=== PATIENT | female | born 1935 | race Caucasian/White ===

== ENCOUNTER → 2017-07-18 11:22 | Outpatient (CLI) | payer MEDICARE, OTHER, SELFPAY ==
--- NOTE | 2017-07-18 11:24 | HPBD_ITS ---
STUDY: DUAL ENERGY X-RAY ABSORPTIOMETRY / DXA REASON FOR EXAM: Female, 81 years old. Early menopause. Loss of height of 3.5 inches. TECHNIQUE: Bone Mineral Density (BMD) measurements of lumbar spine and bilateral hips were obtained. COMPARISON: Comparison is made with prior study dated December 16, 2008. FINDINGS: Lumbar Spine (L1-L4): g/cm2 (1.018) / T-score (-1.3) / Z-score (0.6) Findings are suggestive of osteopenia with a moderate fracture risk. Left Femur Total: g/cm2 (0.779) / T-score (-1.8) / Z-score (0.3) Left Femoral Neck: g/cm2 (0.718) / T-score (-2.3) / Z-score (0.0) Right Femur Total: g/cm2 (0.761) / T-score (-2.0) / Z-score (0.3) The T-Scores on the most recent prior examination were: Lumbar Spine (L1-L4): There has been worsening of bone density since the previous examination. Left Femur Total: which represents a worsening of 8.9%. Right Femur Total: which represents a worsening of 6.2%. HPBD/Dexa Bone Density Study (HP) IMPRESSION: The patient is considered osteopenic as outlined below according to World Tera Organization (WHO) criteria with a moderate fracture risk. There has been worsening of bone density since the previous examination. Reference Information: The T-score is the number of standard deviations above or below the standard which is normal for young adults at their peak bone mineral density. The World Health Organization (WHO) interprets the T-scores as follows: Above -1 Normal bone density Between -1 and -2.5 Osteopenia Equal to / or below -2.5 Osteoporosis As a practical clinical guideline, osteopenia may be graded as follows: Mild -1 through -1.5 Moderate -1.6 through -2.0 Severe -2.1 through -2.4 The Z-score is the number of standard deviations above or below age-matched controls. A Z-score of less than -1.5 would be considered abnormal. References: 1. NIH Osteoporosis and Related Bone Diseases http://www.osteo.org 2. International Society for Clinical Densitometry http://www.iscd.org 3. National Osteoporosis Foundation http://www.nof.org Electronically Signed: Vito Duncan MD at 12:35 EST Tel [phone], Service support ,
--- NOTE | 2017-07-18 11:24 | HPBI_ITS ---
MAMMOGRAPHY - BILATERAL SCREENING REASON FOR EXAM: Female, 81 years old. Routine annual screening examination. PERTINENT HISTORY: Non-contributory. TECHNIQUE: Digital bilateral breast leon (3D mammographic acquisition) in the CC and MLO projections. 2-D mediolateral oblique (MLO) and craniocaudad (CC) views of both breasts were obtained. CAD: Full Field Digital Mammography with Computer Added Detection was performed. COMPARISON: Comparison is made with prior study dated July 07, 2016 and January 03, 2016. FINDINGS: Breast Composition: The breasts are heterogeneously dense, which may obscure small masses. There are no dominant masses or suspicious calcifications. Stable vascular calcifications/secretory calcifications in the left breast. No other significant abnormalities are identified. There has been no significant change since the prior study. HPBI/SCREENING MAMM (CAD), BILAT IMPRESSION: Stable bilateral screening mammogram. Yearly follow-up mammogram recommended. (A) ASSESSMENT CATEGORY: BIRADS Category 2: Benign. A letter regarding these results will be sent to the patient by the facility within 30 days. Approximately 10% of breast cancers are not detected by mammography. A normal mammogram should not delay biopsy of a clinically suspicious abnormality. [id number] Electronically Signed: Vito Duncan MD at 13:25 EST Tel [phone], Service support ,
== END ==
PROVIDERS: Family Provider Family Medicine; PCP Family Medicine; Visit Provider Family Medicine
DX: Z12.31 Encounter for screening mammogram for malignant neoplasm of breast (principal); Z13.820 Encounter for screening for osteoporosis; Z78.0 Asymptomatic menopausal state
CPT/HCPCS: 77063; 77067; 77080

== ENCOUNTER 2017-07-31 05:23 | Inpatient (IN) | payer MEDICARE, OTHER, SELFPAY ==
[2017-07-13 13:12] VITALS: BP 127/89; PULSE 64; RESP 17; TEMP 36.8; O2SAT 97; BMI 26.3
--- NOTE | 2017-07-13 13:35 | SDCEKG_ITS ---
Test Reason : Blood Pressure : / mmHG Vent. Rate : 055 BPM Atrial Rate : 055 BPM P-R Int : 162 ms QRS Dur : 082 ms QT Int : 432 ms P-R-T Axes : 077 058 051 degrees QTc Int : 413 ms Sinus bradycardia Low voltage QRS Nonspecific T wave abnormality Abnormal ECG Confirmed by MOJGAN HINKLE, CORIN ([id number]), photo editor CARLO ROLON ([id number]) on 07/17/2017 8:29:07 AM Referred By: TERESA CUI Confirmed By:CORIN ULRICH MD
[2017-07-31] VITALS (13 sets, daily range): BP systolic 112–168; BP diastolic 53–72; PULSE 42–64; RESP 16–18; TEMP 36.1–37.5; O2SAT 95–99; BMI 27.3
[2017-07-31] MEDS: Acetaminophen 500 MG Tablet 1000 MG PO ×3 (05:59→22:03)
[2017-07-31] MEDS: oxyCODONE HCl Cr 10 MG Tablet PO (06:00)
[2017-07-31] MEDS: Celecoxib 200 MG Capsule 400 MG PO (06:00)
[2017-07-31] MEDS: Cefazolin 2 GM in 0.9% Normal Saline 100 ML IV (07:18)
--- NOTE | 2017-07-31 08:10 | RAD_ITS ---
STUDY: X-RAY - PELVIS AND RIGHT HIP REASON FOR EXAM: Female, 81 years old. Total hip replacement. TECHNIQUE: Radiological exam, hip, unilateral, with pelvis when performed; 1 view COMPARISON: Comparison is made with prior study dated April 29, 2015. FINDINGS: The patient is status post right total hip replacement. There is good alignment. Postoperative soft tissue changes. RAD/Hip Min 2 Views (Portable) IMPRESSION: Status post right total hip replacement. There is good alignment. Postoperative soft tissue changes. Electronically Signed: Vito Duncan MD at 10:10 EST Tel [phone], Service support ,
[2017-07-31] MEDS: Lactated Ringers 1,000 ML 125 ML IV ×2 (11:20→16:46)
[2017-07-31] MEDS: oxyCODONE 5 MG Tablet PO ×2 (11:40→15:49)
[2017-07-31] MEDS: Calcium Carb/Vitamin D 1 TABLET Tablet PO (12:08)
[2017-07-31] MEDS: Famotidine 20 MG Tablet PO (12:08)
[2017-07-31] MEDS: Senna/Docusate Sodium 1 Tablet 2 TABLET PO ×2 (12:08→22:03)
[2017-07-31] MEDS: Multivitamins,Therapeutic Tablet 1 TABLET PO (12:08)
[2017-07-31] MEDS: Rivaroxaban 20 MG Tablet PO (12:09)
--- NOTE | 2017-07-31 12:53 | NURSING ---
Pt. c/o nausea and vomiting noted.
[2017-07-31] MEDS: Ondansetron 4 MG/2 ML Vial IV ×2 (12:55→23:01)
[2017-07-31] MEDS: Cefazolin 1 GM/50 ML BAG IV ×2 (16:47→22:02)
[2017-07-31] MEDS: 0.9% NaCl Peripheral Flush Adult/Peds IV ×2 (21:01→23:01)
--- NOTE | 2017-07-31 23:27 | NURSING ---
No bleeding noted to rt hip dressing since dressing was changed around 1929. Pt assisted up to BSC x2 assist to void. Upon returning to bed, there was a quarter size spot of serosang. drainage on rt hip dressing. Pt turned onto rt side with polar care pack placed on site. Will continue to monitor. Medicated with Zofran for nausea and 50ml emesis.
[2017-08-01] MEDS: oxyCODONE 5 MG Tablet PO (01:31)
[2017-08-01] MEDS: Lactated Ringers 1,000 ML 125 ML IV (01:32)
[2017-08-01 01:42] VITALS: BP 112/62; PULSE 66; RESP 16; TEMP 36.6; O2SAT 96
[2017-08-01 06:27] LABS: Hematocrit 28.4 % (37-47); Hemoglobin 9.3 g/dl (12.0-15.0); Mean Corp Hgb Conc 32.7 g/gl (32-36); Mean Corpuscular Hgb 29.2 pg (27.0-32.0); Mean Corpuscular Volume 89.3 fL (81-99); Mean Platelet Vol. 11.8 fl (6.2-12.0); Platelet Count 135 K/mm3 (150-450); RBC Distribution Width CV 13.1 % (11.6-14.6); RBC Distribution Width SD 42.8 fl (35.1-43.9); Red Blood Count 3.18 M/mm3 (4.2-5.4); White Blood Count 6.1 K/mm3 (4.4-11.0)
[2017-08-01] MEDS: Acetaminophen 500 MG Tablet 1000 MG PO ×3 (06:31→21:14)
[2017-08-01 06:51] LABS: Anion Gap 7 (5-15); BUN 16 mg/dL (7-18); BUN/Creat Ratio 22.6 RATIO (10-20); Calcium,Total 8.4 mg/dL (8.5-10.1); Chloride 101 mmol/L (98-107); Creatinine, Serum 0.71 mg/dL (0.55-1.02); EST Glomerular Filtration Rate 84 mL/min (>60); Est Glom Filt Rate - Afr Amer 101 mL/min (>60); Estimated Creatinine Clearance 32.73 ml/min; Glucose 112 mg/dL (74-106); Potassium 4.2 mmol/L (3.5-5.1); Sodium Level 134 mmol/L (136-145)
[2017-08-01 06:53] LABS: Scan Indicated on CBC? Y/N NO
--- NOTE | 2017-08-01 07:42 | PCM.PN.ORT ---
Subjective: Patient is resting comfortably in chair at bedside during exam. No adverse events overnight. However her dressing has had to be changed 3 or 4 times. The current dressing has stayed dry throughout the night. She has been laying on the operative right extremity for pressure. Currently denies chest pain, shortness of breath, dizziness, calf pain. The pain medicines seem to be helping. She is nervous for a discharge to home today. She would like to see how the day goes. Objective: Patient is alert and oriented ?3. No acute distress at rest. Breathing easily without respiratory distress. Inspection of right hip reveals a dressing that is with a couple small drops of dried bloody drainage. Negative Nehal bilaterally. Without signs of DVT. Sensation intact light touch bilateral lower extremities. Patient able to actively plantar and dorsiflex bilateral feet against resistance. Pedal pulses present +2 bilaterally. Neurovascularly intact. - Physical Exam Vital Signs Temp Pulse Resp BP Pulse Ox 97.9 F 66 16 112/62 96 08/01/17 01:42 08/01/17 01:42 08/01/17 01:42 08/01/17 01:42 08/01/17 01:42 Oxygen Delivery Method Room Air Weight: 66.68 kg Body Mass Index (BMI) 27.3 Intake and Output for Last 24 Hours 07/30/17 07/31/17 08/01/17 23:59 23:59 23:59 Intake Total 6057 / 6057 4329 / 4329 Output Total 100 / 100 825 / 825 Balance 5957 / 5957 3504 / 3504 Laboratory Tests Past 24 Hrs 08/01/17 08/01/17 05:48 05:48 WBC 6.1 RBC 3.18 L Hgb 9.3 L Hct 28.4 L MCV 89.3 MCH 29.2 MCHC 32.7 RDW 13.1 RDW Differential 42.8 Plt Count 135 L MPV 11.8 Sodium 134 L Potassium 4.2 Chloride 101 Carbon Dioxide 26.0 Anion Gap 7 BUN 16 Creatinine 0.71 Estim Creat Clear Calc 32.73 Est GFR (MDRD) Af Amer 101 Est GFR (MDRD) Non-Af 84 BUN/Creatinine Ratio 22.6 H Glucose 112 H Calcium 8.4 L Assessment/Plan 1. Status post right RAQUEL; postop day #1 2. Continue OxyIR and Tylenol for pain control 3. DVT prophylaxis; bilateral teds, SCDs and resume preoperative Xarelto therapy 4. Begin PT/OT; weightbearing as tolerated right lower extremity with a walker and hip dislocation precautions 5. Drop in hemoglobin/hematocrit, asymptomatic; without indication for transfusion continue to monitor 6. Encourage incentive spirometry 7. Continue discharge planning with case management. The plan is for discharge to home. We will see if she is having adequate pain control and moving well with physical therapy. May consider a discharge to home later today
[2017-08-01 08:35] VITALS: BP 121/65; PULSE 60; RESP 16; TEMP 36.9; O2SAT 96
[2017-08-01 08:38] VITALS: RESP 16; O2SAT 96
[2017-08-01] MEDS: Gabapentin 100 MG Capsule PO (09:13)
[2017-08-01] MEDS: Multivitamins,Therapeutic Tablet 1 TABLET PO (09:13)
[2017-08-01] MEDS: Calcium Carb/Vitamin D 1 TABLET Tablet PO (09:13)
[2017-08-01] MEDS: Losartan Potassium 50 MG Tablet PO (09:14)
[2017-08-01] MEDS: Famotidine 20 MG Tablet PO (09:14)
[2017-08-01] MEDS: Senna/Docusate Sodium 1 Tablet 2 TABLET PO ×2 (09:14→21:15)
[2017-08-01] MEDS: Rivaroxaban 20 MG Tablet PO (09:15)
--- NOTE | 2017-08-01 10:36 | PCM.DC.THR ---
Discharge Diet: No Restrictions Discharge Activity: May Not Drive - while taking narcotic pain medications., May not drive while taking narcotic pain medications., Use Walker May shower in (days): 2 - only if incision is dry and without drainage. Do NOT soak/submerge in tub/pool/castillo/stream/hot tub. OK TO SHOWER OVER MEPILEX DRESSING Ice area for (Minutes): 20 - EVERY HOUR NEEDED Weight Bearing Status: Weight bearing as tolerated Elevate: Operative Extremity Additional Activity Instructions:: Wear elastic stockings for 2 weeks. DO NOT use alcohol with narcotic pain medication. DO NOT make important decisions while taking narcotic medication. If you have problems with taking your medication (rash, itching, nausea, etc.) call the office at once. SEE POST OPERATIVE PINK SHEET Call your doctor if your incision/area has: Continuous Slow Oozing, Sudden Increased Bleeding, Increased Pain/ Swelling, Increased Redness, Foul Smelling Discharge, Swelling at the incision site Call your doctor if you observe: Fever of 101 or Higher, Coldness, Increased Pain, Numbness or Tingling, Chest pain, Calf discomfort, Uncontrolled pain Remove Dressing in (days):: 5 - OK TO REMOVE MEPILEX DRESSING 5 DAYS AFTER SURGERY Cleanse incision/area with: Soap & Water Additional Dressing/Incision Instructions:: SEE POST OPERATIVE PINK SHEET Allergies/Adverse Reactions: Allergies ampicillin Allergy (Verified 10/03/13 08:24) Unknown Penicillins Allergy (Verified 10/03/13 08:24) Unknown meperidine HCl [From Demerol] Adverse Reaction (Verified 10/21/14 15:31) Nausea vinyl Adverse Reaction (Uncoded 10/06/13 10:28) Rash Vinyl gloves Medications to take at Discharge Diclofenac Sodium [Voltaren] 100 gm TP PRN PRN 10/03/13 Multivitamins,Therapeutic [Multivitamin] 1 tablet PO DAILY 10/03/13 L.acidoph,Paracasei, B.lactis [Probiotic] 1 each PO DAILY 10/21/14 Losartan Potassium [Cozaar] 50 mg PO DAILY 10/21/14 Omeprazole [Prilosec] 20 mg PO DAILY PRN 10/21/14 Rivaroxaban [Xarelto] 20 mg PO DAILY 10/29/14 Calcium Carbonate/Vitamin D3 [Calcium 600-Vit D3 400 Caplet] 1 each PO DAILY 07/13/17 Gabapentin [Neurontin] 100 mg PO TIDCM 07/13/17 Acetaminophen [Tylenol] 1,000 mg PO Q8 #30 tab 08/01/17 Oxycodone [Oxyir] 5 - 10 mg PO Q4H PRN PRN 7 Days #56 tablet 08/01/17 Senna/Docusate Sodium [Senokot-S] 2 tab PO BID #30 tab 08/01/17 The following prescriptions were given: Oxycodone [Oxyir] 5 - 10 mg PO Q4H PRN PRN 7 Days #56 tablet PRN Reason: Mod-Severe Pain (-03/20) Acetaminophen [Tylenol] 1,000 mg PO Q8 #30 tab Senna/Docusate Sodium [Senokot-S] 2 tab PO BID #30 tab Primary Care Physician: Luis Carr III, MD [Primary Care Provider] -
--- NOTE | 2017-08-01 14:57 | NURSING ---
pt confused, found wandering into other rooms. spoke with marisabel middleton, lizet, dc'd scopolomine patch at this time and p bhavana stay over night
[2017-08-01 15:00] VITALS: BP 126/54; PULSE 69; RESP 18; TEMP 37.2; O2SAT 96
--- NOTE | 2017-08-01 16:18 | CASEMGMT ---
BACILIO BOATENG Face to Face with patient for initial transition planning/care coordination assessment. BACILIO BOATENG introduced self and role at [facility]. Patient sitting in chair, alert and oriented, son at bedside. Patient willing to participate in assessment and is able to answer all questions appropriately. Care providers, pharmacy, and demographics verified. See link attached. Patient wishes to discharge home with [facility] and requesting [facility]. Pt states she has no further needs or concerns at this time. BACILIO BOATENG sent referral to [facility] for therapy. [facility] is able to take the patient. CM to follow for discharge planning needs that may arise. Disposition Plan: Patient to discharge home with [facility], family support, and follow-up plans in place.
[2017-08-01 21:00] VITALS: BP 140/67; PULSE 69; RESP 16; TEMP 37; O2SAT 96
[2017-08-01 22:58] LABS: Bacteria 0 SEEN /hpf (None Seen); Mucous, Urine 0 SEEN /hpf (<or=2+); Red Blood Cells-Urine 0 SEEN /hpf (0-5); Squamous Epithelial Cells - UA 0 SEEN /hpf (5-10); White Blood Cells 0 SEEN /hpf (0-5)
[2017-08-01 23:01] LABS: Color, Urine Yellow (Yellow); Glucose, Dipstick Normal (Normal); Ketone-Dipstick Negative (Negative); Leukocyte Esterase-Dipstick Negative /ul (Negative); Nitrite-Dipstick Negative (Negative); Occult Blood-Urine Negative /ul (Negative); Protein-Dipstick Negative (Negative); Urine Bilirubin Dipstick Negative (Negative); Urine Clarity Clear (Clear); Urine Urobilinogen Normal (Normal)
[2017-08-02 02:13] VITALS: BP 134/73; PULSE 67; RESP 16; TEMP 36.7; O2SAT 97
[2017-08-02] MEDS: Acetaminophen 500 MG Tablet 1000 MG PO ×2 (06:08→14:06)
[2017-08-02 06:36] LABS: Hematocrit 28.7 % (37-47); Hemoglobin 9.3 g/dl (12.0-15.0); Mean Corp Hgb Conc 32.4 g/gl (32-36); Mean Corpuscular Hgb 29.2 pg (27.0-32.0); Mean Corpuscular Volume 90.3 fL (81-99); Mean Platelet Vol. 11.9 fl (6.2-12.0); Platelet Count 118 K/mm3 (150-450); RBC Distribution Width CV 13.3 % (11.6-14.6); RBC Distribution Width SD 43.3 fl (35.1-43.9); Red Blood Count 3.18 M/mm3 (4.2-5.4); White Blood Count 4.3 K/mm3 (4.4-11.0)
[2017-08-02 06:37] LABS: Scan Indicated on CBC? Y/N NO
[2017-08-02 08:27] VITALS: BP 126/55; PULSE 87; RESP 18; TEMP 37.1; O2SAT 96
[2017-08-02] MEDS: Multivitamins,Therapeutic Tablet 1 TABLET PO (08:29)
[2017-08-02] MEDS: Calcium Carb/Vitamin D 1 TABLET Tablet PO (08:29)
[2017-08-02] MEDS: Gabapentin 100 MG Capsule PO (08:30)
[2017-08-02 10:10] VITALS: PULSE 68
[2017-08-02] MEDS: Rivaroxaban 20 MG Tablet PO (10:13)
[2017-08-02] MEDS: Famotidine 20 MG Tablet PO (10:13)
[2017-08-02] MEDS: Losartan Potassium 50 MG Tablet PO (10:13)
[2017-08-02] MEDS: oxyCODONE 5 MG Tablet PO (14:07)
--- NOTE | 2017-08-02 15:11 | PCM.PN.ORT ---
Subjective: Patient is resting comfortably in bed during exam. No adverse events overnight. The scopolamine patch was discontinued yesterday. She is much less confused today. She had a urine analysis. It was without abnormality. Pain has been well controlled in the right hip. She does still have thigh soreness. With some swelling. No chest pain, shortness of breath, dizziness, calf pain. Doing well overall. Feel she is ready for discharge to home today. Objective: Patient is alert and oriented ?3. No acute distress at rest. Breathing easily without respiratory distress. Inspection of right hip reveals a dressing with a couple dry bloody spots. Moderate swelling of the right thigh with minimal tenderness. The thigh is still soft and supple. Negative Nehal bilaterally without signs of DVT. Sensation intact to light touch bilateral lower extremities. Patient able to actively plantar and dorsiflex bilateral feet against resistance. Pedal pulses present and equal bilaterally. Neurovascularly intact. - Physical Exam Vital Signs Temp Pulse Resp BP Pulse Ox 98.8 F 68 18 126/55 H 96 08/02/17 08:27 08/02/17 10:10 08/02/17 08:27 08/02/17 08:27 08/02/17 08:27 Oxygen Delivery Method Room Air Weight: 66.68 kg Body Mass Index (BMI) 27.3 Intake and Output for Last 24 Hours 07/31/17 08/01/17 08/02/17 23:59 23:59 23:59 Intake Total 6057 / 6057 5111 / 5111 500 / 500 Output Total 100 / 100 1425 / 1425 900 / 900 Balance 5957 / 5957 3686 / 3686 -400 / -400 Laboratory Tests Past 24 Hrs 08/01/17 08/02/17 21:20 05:52 WBC 4.3 L RBC 3.18 L Hgb 9.3 L Hct 28.7 L MCV 90.3 MCH 29.2 MCHC 32.4 RDW 13.3 RDW Differential 43.3 Plt Count 118 L MPV 11.9 Urine Color Yellow Urine Clarity Clear Urine pH 6.0 Ur Specific [place] 1.010 Urine Protein Negative Urine Glucose (UA) Normal Urine Ketones Negative Urine Occult Blood Negative Urine Nitrite Negative Urine Bilirubin Negative Urine Urobilinogen Normal Ur Leukocyte Esterase Negative Urine RBC 0 SEEN Urine WBC 0 SEEN Ur Squamous Epith Cells 0 SEEN Urine Bacteria 0 SEEN Urine Mucus 0 SEEN Assessment/Plan 1. Status post right RAQUEL; postop day #2 2. Continue Tylenol for pain control we will switch from OxyIR to [place] for postoperative pain control 3. DVT prophylaxis; bilateral teds, SCDs and resume preoperative Xarelto therapy 4. Continue PT/OT; weightbearing as tolerated right lower extremity with a walker and hip dislocation precautions 5. Drop in hemoglobin/hematocrit, asymptomatic; without indication for transfusion continue to monitor 6. Encourage incentive spirometry 7. Orthopedically stable okay for discharge to home today. Case and findings were discussed and reviewed with Dr. Anton Kohli.
[2017-08-02 15:27] VITALS: BP 107/47; PULSE 72; RESP 18; TEMP 37.2; O2SAT 94
== END 2017-08-02 15:45 | disposition home health service (06) | DRG 470 ==
LOC: ACINP 05:24 → MS3 09:14
PROVIDERS: Physician Assistant; Admitting Provider Orthopaedic Surgery; Family Provider Family Medicine; PCP Family Medicine; Visit Provider Orthopaedic Surgery
PROC: 0SR90JZ Replacement of Right Hip Joint with Synthetic Substitute, Open Approach (ICD-10-PCS; CPT 27130; principal; 2017-07-31 06:50)
DX: M16.11 Unilateral primary osteoarthritis, right hip (principal); I48.91 Unspecified atrial fibrillation; R71.0 Precipitous drop in hematocrit; I10 Essential (primary) hypertension; Z79.01 Long term (current) use of anticoagulants
CPT/HCPCS: 36415; 73502; 80048; 81001; 85027; 87077; 87081; 97110; 97116; 97162; 97166; 97530; 97535; J7120; A4216; J2405

== ENCOUNTER → 2018-02-22 09:07 | Outpatient (CLI) | payer MEDICARE, OTHER, SELFPAY ==
--- NOTE | 2018-02-22 09:08 | ECHOD_ITS ---
Reason For Study: AFIB Procedure This was a 2D Doppler, Color Flow transthoracic echocardiogram. Exam performed in department. Left Ventricle Normal LV size. Left ventricular systolic function is normal. The estimated ejection fraction is 65 %. Stage 1 diastolic dysfunction. No regional wall motion abnormalities noted. Right Ventricle Normal RV size. Normal systolic function. Atria Normal left atrium. Normal right atrium. Mitral Valve Normal mitral valve. Tricuspid Valve Normal tricuspid valve. Mild (1+) tricuspid valve insufficiency. Pulmonary artery systolic pressure is 24 mmHg. Aortic Valve Normal aortic valve. Trisinus/trileaflet aortic valve. Pulmonic Valve Normal pulmonic valve. Great Vessels Normal aortic root. The pulmonary artery is normal size. Normal inferior vena cava. Pericardium/Pleural No pericardial effusion. MMode/2D Measurements & Calculations LVIDd: 4.4 cm IVSd: 0.86 cm Ao root diam: 3.4 cm LVIDs: 2.8 cm LVPWd: 1.0 cm LA dimension: 3.6 cm RVDd: 3.4 cm FS: 36.4 % LAV(MOD-bp): 48.3 ml LA A4 area: 16.2 cm2 RA A4 area: 14.0 cm2 LAV(MOD-bp) Indexed: 28.6 ml/m2 LAV(MOD-sp2): 54.4 ml LAV(MOD-sp4): 42.0 ml Time Measurements MV dec time: 0.39 sec Doppler Measurements & Calculations MV E max john: 82.7 cm/sec Lat Peak E' John: 5.0 cm/sec Med Peak E' John: 4.2 cm/sec MV A max john: 86.1 cm/sec E/E' lat: 16.6 E/E' med: 19.7 MV E/A: 0.96 Ao V2 max: 126.7 cm/sec LV V1 max: 108.6 cm/sec PA V2 max: 73.2 cm/sec Ao max P.4 mmHg LV V1 max P.7 mmHg TR max john: 232.9 cm/sec TR max P.7 mmHg Interpretation Summary Normal LV size. Left ventricular systolic function is normal. The estimated ejection fraction is 65 %. Stage 1 diastolic dysfunction. Mild (1+) tricuspid valve insufficiency. Ordering Physician: Ant Thayer Referring Physician: BRYNN ESCALONA Performed By: Lizbet Mallory, RDCS, RVT
[2018-02-22 11:02] LABS: Absolute Lymphocyte Count 1.12 X10^3/ul (0.83-4.51); Absolute Neutrophil Count 2.6 X10^3/uL (2.0-7.7); Basophil# 0.03 X10^3/uL; Basophil% 0.7 % (0-1); Eosinophil# 0.15 X10^3/uL; Eosinophils% 3.4 % (0-5); Hematocrit 44.4 % (37-47); Hemoglobin 13.9 g/dl (12.0-15.0); Lymphocyte # 1.12 X10^3/ul (4.0); Lymphocyte % 25.2 % (19-41); Mean Corp Hgb Conc 31.3 g/gl (32-36); Mean Corpuscular Hgb 28.7 pg (27.0-32.0); Mean Corpuscular Volume 91.7 fL (81-99); Mean Platelet Vol. 11.8 fl (6.2-12.0); Monocyte# 0.52 X10^3/uL; Monocyte% 11.7 % (0-10); Neutrophil # 2.61 X10^3/uL (2.7-7.7); Neutrophil % 58.8 % (47-70); Platelet Count 200 K/mm3 (150-450); RBC Distribution Width CV 13.7 % (11.6-14.6); Red Blood Count 4.84 M/mm3 (4.2-5.4); White Blood Count 4.4 K/mm3 (4.4-11.0)
[2018-02-22 11:03] LABS: POSITIVE COUNT NO; POSITIVE DIFFERENTIAL NO; POSITIVE MORPHOLOGY NO
== END ==
PROVIDERS: Family Provider Family Medicine; PCP Family Medicine; Visit Provider Internal Medicine Cardiovascular Disease
DX: I48.0 Paroxysmal atrial fibrillation (principal)
CPT/HCPCS: 36415; 85025; 93306

== ENCOUNTER → 2018-07-09 06:34 | Outpatient (CLI) | payer MEDICARE, OTHER, SELFPAY ==
[2018-06-24 09:45] VITALS: BMI 27.6
--- NOTE | 2018-07-09 12:20 | STRESSREP_ITS ---
Stress Test Report Date: 07/09/2018 Procedure: Exercise tolerance test/imaging study Indications: Chest pain Consent: Per the patient Procedure: The patient exercised on a Jimmy protocol for 4 minutes and 30 seconds completing Stage I and 1 minute and 30 seconds of Stage II achieving a peak heart rate of 136 bpm (99 % predicted maximal heart rate) with a peak blood pressure 172/80 mmHg and a peak MET capacity of 6 METs. The baseline ECG demonstrated normal sinus rhythm . The peak exercise ECG demonstrated approximately 0.[address] segment depression in leads II, III, aVF with gradual resolution towards baseline and recovery . There was a rare PVC pretest, during exercise, and a rare PAC during recovery . The functional capacity was considered good . There was no complaint of chest discomfort during exercise or recovery. The examination was discontinued secondary to dyspnea . Impression: 1. Technically adequate (percent predicted maximal heart rate greater than 85%) exercise tolerance test 2. Peak exercise ECG With approximately 0.[address] segment depression in leads II, III, aVF with gradual resolution towards baseline and recovery 3. There was a rare PVC pretest, during exercise, and a rare PAC during recovery 4. Nuclear images pending Myocardial perfusion imaging study: Technique: The patient was injected with 11.1 mCi of technetium 99m Cardiolite and subsequently rest SPECT Cardiolite nuclear imaging was obtained in the horizontal long, vertical long, and short axis views. The patient exercised on a Jimmy protocol for 4 minutes and 30 seconds completing Stage I and 1 minute and 30 seconds of Stage II achieving a peak heart rate of 136 bpm (99 % predicted maximal heart rate) with a peak blood pressure 172/80 mmHg and a peak MET capacity of 6 METs. The patient was injected with 33.3 mCi of technetium 99m Cardiolite and subsequently stress SPECT Cardiolite nuclear imaging was obtained in the horizontal long, vertical long, and short axis views. A gated Cardiolite study at peak stress was obtained. Interpretation: Rest and stress SPECT Cardiolite nuclear imaging status post realignment, normalization, and attenuation correction, demonstrates the appearance of relative uniform tracer uptake and myocardial perfusion appearing within normal limits. There is end systolic thickening and brightening. The gated Cardiolite study demonstrates myocardial thickening and inward wall motion. The reported LVEF is 80 %. Impression: 1. Rest and stress SPECT Cardiolite nuclear imaging demonstrate relative uniform tracer uptake and myocardial perfusion appearing within normal limits. 2. The gated Cardiolite study reports an LVEF of 80 %. This note was generated with [employer]ation software. It may contain incorrect words, spelling, and punctuation that were not noted in checking the note before signing.
== END ==
PROVIDERS: Family Provider Family Medicine; PCP Family Medicine; Referring Provider Physician Assistant Medical; Visit Provider Physician Assistant Medical
DX: I10 Essential (primary) hypertension (principal); I48.0 Paroxysmal atrial fibrillation; R07.9 Chest pain, unspecified
CPT/HCPCS: 78452; 93017; A9500; A4216

== ENCOUNTER → 2018-09-13 09:38 | Outpatient (CLI) | payer MEDICARE, OTHER, SELFPAY ==
[2018-07-09 09:55] VITALS: BMI 27.6
--- NOTE | 2018-09-13 09:41 | BI_ITS ---
MAMMOGRAPHY - BILATERAL SCREENING REASON FOR EXAM: Female, 82 years old. Routine annual screening examination. PERTINENT HISTORY: Non-contributory. TECHNIQUE: Digital bilateral breast leon (3D mammographic acquisition) in the CC and MLO projections. 2-D mediolateral oblique (MLO) and craniocaudad (CC) views of both breasts were obtained. CAD: Full Field Digital Mammography with Computer Added Detection was performed. COMPARISON: Comparison is made with prior study dated May 17, 2018 and July 07, 2016. FINDINGS: Breast Composition: The breasts are heterogeneously dense, which may obscure small masses. There are no dominant masses or suspicious calcifications. Stable vascular/secretory calcifications in the left breast. No other significant abnormalities are identified. There has been no significant change since the prior study. BI/SCREENING MAMM (CAD), BILAT IMPRESSION: Stable bilateral screening mammogram. Yearly follow-up mammogram recommended. (A) ASSESSMENT CATEGORY: BIRADS Category 2: Benign. A letter regarding these results will be sent to the patient by the facility within 30 days. Approximately 10% of breast cancers are not detected by mammography. A normal mammogram should not delay biopsy of a clinically suspicious abnormality. [id number] Electronically Signed: Vito Duncan, at 11:02 EDT , Service support ,
== END ==
PROVIDERS: Family Provider Family Medicine; PCP Family Medicine; Referring Provider Family Medicine; Visit Provider Family Medicine
DX: Z12.31 Encounter for screening mammogram for malignant neoplasm of breast (principal)
CPT/HCPCS: 77063; 77067

== ENCOUNTER 2019-06-23 12:29 | Emergency (ER) | payer MEDICARE, OTHER, SELFPAY ==
[2019-06-17 13:10] VITALS: BMI 25.0
[2019-06-23] VITALS (16 sets, daily range): BP systolic 99–164; BP diastolic 61–120; PULSE 37–115; RESP 13–24; TEMP 36.6; O2SAT 91–98; BMI 25.4
--- NOTE | 2019-06-23 13:03 | EKG12_ITS ---
Test Reason : CARDIOVERION Blood Pressure : / mmHG Vent. Rate : 066 BPM Atrial Rate : 066 BPM P-R Int : 190 ms QRS Dur : 082 ms QT Int : 452 ms P-R-T Axes : 059 060 057 degrees QTc Int : 473 ms Normal sinus rhythm Nonspecific T wave abnormality Prolonged QT Abnormal ECG Confirmed by TEE HINKLE, CECI ([id number]), marketing editor SHALA AQUINO ([id number]) on 06/27/2019 9:47:31 AM Referred By: SHAMIR Confirmed By:TUTU OLIVEIRA MD
--- NOTE | 2019-06-23 13:04 | ED.DCSUM_ITS ---
History of Present Illness Chief Complaint: Shortness of Breath Informant: Patient, Relative Onset: Weeks - 3-4 Activity at onset: Exertion, Light Activity Timing: Intermittent - getting worse Quality: Pressure Location: Left Chest Current Severity: Gone Maximum Severity: Mild Worsened By: Exertion Relieved By: Rest Associated Symptoms: Dyspnea, Cough, Palpitations. Negative for: Nausea, Vomiting, Diaphoresis, Fever, Lightheadedness, Acid Reflux Narrative: About a month ago patient had acute diarrhea and tested positive for Shigella and C. difficile, both of which were treated and are better but during which, she went into A. fib with RVR. She has a history of chronic A. fib but has usually been rate controlled. She is anticoagulated with Xarelto chronically. She was seen in the office and put on metoprolol but it did not help her rate so last week they started her on amiodarone, but she still been having the symptoms which have worsened, including dyspnea with exertion and orthopnea, which are new in the past month. She has been getting around okay. No swelling in the legs or calf pains. No history of DVT. - Past Medical History (1) Essential (primary) hypertension Status: Chronic (2) Paroxysmal atrial fibrillation Status: Chronic Past Medical History - Allergies and Home Meds Allergies/Adverse Reactions: Allergies ampicillin Allergy (Verified 06/23/19 12:31) Unknown Penicillins Allergy (Verified 06/23/19 12:31) Unknown meperidine HCl [From Demerol] Adverse Reaction (Verified 06/23/19 12:31) Nausea vinyl Adverse Reaction (Uncoded 06/23/19 12:31) Rash Vinyl gloves Primary Care Physician: Ant Thayer MD [STAFF PHYSICIAN] - (call for appt) Doctors: Dr. Thayer Lives: Spouse/ Significant Other Smoking Status: Never smoker Review of Systems General: Denies: Chills, Fever, Sweats Eyes: Denies: Visual changes - bilaterally, Diplopia ENT: Denies: Rhinorrhea, Sore throat Cardiovascular: Reports: Chest pain, Palpitations, Heart racing Respiratory: Reports: Dyspnea, Cough, Dyspnea on exertion, Orthopnea. Denies: Sputum, Paroxysmal nocturnal dyspnea Gastrointestinal: Denies: Abdominal pain, Nausea, Vomiting, Diarrhea, Melena, Hematochezia Genitourinary: Denies: Dysuria, Hematuria, Frequency Musculoskeletal: Denies: Neck pain, Back pain, Swelling, Extremity Pain Skin: Denies: Rash, Wounds Neurological: Denies: Headache, Weakness, Numbness Physical Exam Vital Signs/Narrative: Vital Signs Temp Pulse Resp BP Pulse Ox 06/23/19 12:29 98 F 115 H 16 151/120 H 98 Inital Vital Signs reviewed: Yes General: Well nourished, Well developed, No Acute Distress Head: Normocephalic, Atraumatic Eyes: Perrl, EOMI ENT: Moist mucous membranes, No rhinorrhea Neck: Supple, Nontender, No lymphadenopathy, No JVD Cardiovascular: No murmurs, Irregular, Tachycardia Respiratory: No distress, CTA bilaterally, Chest nontender Abdomen: Soft, Nontender, Nondistended, Normal bowel sounds Back: Nontender, Normal Inspection Extremities: Nontender, No edema. Negative for: Calf Tenderness Skin: Normal color, No rash, No Trauma Neurological: Alert, Oriented x3, Cranial nerves II-XII grossly intact, Normal Strength, Normal Sensation Psychological: Normal affect, Normal Mood Diagnostic/Tx/Re-eval Impressions Chest X-Ray 06/23/19 13:08 IMPRESSION: Small bilateral pleural effusions with underlying infiltration and/or atelectasis superimposed on mild degree of CHF. Electronically Signed: Vito Perla, at 13:51 EST , Service support , 06/23/19 13:08 Chest PA and Lateral [RAD] Stat Laboratory Results 06/23/19 06/23/19 12:50 12:50 WBC 6.5 RBC 4.80 Hgb 14.1 Hct 44.3 MCV 92.3 MCH 29.4 MCHC 31.8 L RDW Std Deviation 49.7 H RDW Coeff of Shelly 14.6 Plt Count 212 MPV 11.5 Immature Gran % (Auto) 0.300 Neut % (Auto) 72.6 H Lymph % (Auto) 15.1 L [place] % (Auto) 9.8 Eos % (Auto) 1.4 Baso % (Auto) 0.8 Absolute Neuts (auto) 4.7 Absolute Lymphs (auto) 0.98 Nucleated RBC % 0 Sodium 141 Potassium 4.3 Chloride 109 H Carbon Dioxide 27.0 Anion Gap 5 BUN 22 H Creatinine 1.26 H Estim Creat Clear Calc 27.49 Est GFR (MDRD) Af Amer 52 L Est GFR (MDRD) Non-Af 43 L BUN/Creatinine Ratio 17.5 Glucose 110 H Calcium 9.6 Troponin I < 0.015 TSH 5.02 H - Rhythm Strip Rhythm Strip: A-fib Rate: 120 Ectopy: PVC(s) - EKG Initial EKG Interpretation: Atrial Fibrillation, Non-Specific ST Changes - no acute injury pattern post-cardioversion Interpretation: Sinus Rhythm, No Acute Injury Pattern, Non-Specific ST Changes - diffuse flattening - Medical Decision Making Patient was given Cardizem, it did help a little with her rate but she kept getting fast, so she was given another bolus and was going to start on a drip, but her rate remained reasonably controlled after the 2nd bolus. Daughter asked that we add a TSH on since it had not been checked, it is a little high, ruling out acute hyperthyroid state. Her chest x-ray shows a mix of possibilities but is likely more indicative of some degree of failure and mild signs of fluid overload in her chest. I discussed with Dr. Thayer. His recommendation was to try cardioverting her since she has been anticoagulated for a long time. Discussed this with patient and her daughter, they are both agreeable to this, and if successful, she may be discharged home with close outpatient follow-up. Patient was successfully cardioverted to sinus rhythm, she is resting in the 30- 40 range and is keenly alert and doing well. She likely is bradycardic because of the combination of AV blockade she has received today. We will continue to monitor her. Cardiology would like a dose of Lasix before she goes, as well as a prescription for Lasix until she follows up as an outpatient and given the chest x-ray findings. Given the relative bradycardia, she is now in the 40s, he agrees to have her hold her dose of metoprolol tonight and still take her amiod arone. Critical care time (excluding procedures): 30-74 minutes - 35 minutes, including time spent discussing with patient, family, consultants, and performing direct patient care to bedside. Does not include procedures. Procedures Procedure(s): 1. Procedural sedation --patient has been n.p.o. for over 6 hours. She was treated with etomidate 10 mg and fentanyl 25 mcg. Sedation was complicated by mild clonus which did not seem to involve her jaw, chest or arms, for about 5-10 seconds, and then increased oral secretions. She did not vomit or seemed to aspirate. She did not become hypoxic. She was pretreated with IV fluids and oxygen and closely monitored. The entire time she recovered and was nauseated which was treated with Zofran. No other complications. 2. Electrocardioversion --this was performed in order to cardiovert her out of atrial fibrillation. Pads were placed anterior/posterior, and the Zoll device w as placed in sync mode. She was cardioverted successfully on first attempt with 200 J biphasic. There were no complications. ED Disposition - Plan for ED Patient: Disposition: Home or Assisted Living Diagnosis: Atrial fibrillation with RVR, Dyspnea on exertion Instructions: Cardioversion, Atrial Fibrillation Prescriptions: Furosemide 40 mg PO DAILY #30 tab Prescription Printed Referrals: Ant Thayer MD [STAFF PHYSICIAN] - (call for appt) Additional Instructions: DO NOT take your dose of metoprolol tonight. Take all of your other medications including your amiodarone. You may resume your metoprolol as previously prescribed tomorrow morning. You can start taking the new prescription, Lasix, tomorrow, you had a dose in the ER for today.
--- NOTE | 2019-06-23 13:08 | RAD_ITS ---
STUDY: X-RAY CHEST REASON FOR EXAM: Female, 83 years old. Chest pain, sob, cough all for approx. 3 weeks; hx of a-fib TECHNIQUE: PA and lateral views of the chest. COMPARISON: Comparison is made with prior examination of October 01, 2013. FINDINGS: EKG electrodes are seen. Small bilateral pleural effusions with bibasilar atelectasis and/or infiltrate superimposed on mild degree of CHF. There is mild cardiac enlargement. Normal mediastinum and jerel. Normal visualized pulmonary arteries. There is atherosclerotic calcification of the aortic arch with tortuosity. There is a dextroscoliosis of the thoracic spine. Normal visualized ribs, clavicles, and shoulders. There is no demonstrated abnormality of the visualized soft tissue structures of the upper abdomen. RAD/Chest PA and Lateral IMPRESSION: Small bilateral pleural effusions with underlying infiltration and/or atelectasis superimposed on mild degree of CHF. Electronically Signed: Vito Duncan, at 13:51 EST , Service support ,
[2019-06-23 13:19] LABS: Absolute Lymphocyte Count 0.98 X10^3/uL (0.83-4.51); Absolute Neutrophil Count 4.7 X10^3/uL (2.0-7.7); Basophil# 0.05 X10^3/uL; Basophil% 0.8 % (0-1); Eosinophil# 0.09 X10^3/uL; Eosinophils% 1.4 % (0-5); Hematocrit 44.3 % (37-47); Hemoglobin 14.1 g/dL (12.0-15.0); Lymphocyte # 0.98 X10^3/ul (4.0); Lymphocyte % 15.1 % (19-41); Mean Corp Hgb Conc 31.8 g/dL (32-36); Mean Corpuscular Hgb 29.4 pg (27.0-32.0); Mean Corpuscular Volume 92.3 fL (81-99); Mean Platelet Vol. 11.5 fl (6.2-12.0); Monocyte# 0.64 X10^3/uL; Monocyte% 9.8 % (0-10); NRBC Flagged by Analyzer 0 % (0-5); Neutrophil # 4.73 X10^3/uL (2.7-7.7); Neutrophil % 72.6 % (47-70); Platelet Count 212 K/mm3 (150-450); RBC Distribution Width CV 14.6 % (11.6-14.6); RBC Distribution Width SD 49.7 fl (35.1-43.9); White Blood Count 6.5 K/mm3 (4.4-11.0)
[2019-06-23] MEDS: dilTIAZem 25 MG/5 ML Vial 15 MG IV BOLUS (13:20)
[2019-06-23 13:46] LABS: Anion Gap 5 (5-15); BUN 22 mg/dL (7-18); BUN/Creat Ratio 17.5 RATIO (10-20); Calcium,Total 9.6 mg/dL (8.5-10.1); Chloride 109 mmol/L (98-107); Creatinine, Serum 1.26 mg/dL (0.55-1.02); EST Glomerular Filtration Rate 43 mL/min (>60); Est Glom Filt Rate - Afr Amer 52 mL/min (>60); Estimated Creatinine Clearance 27.49 ml/min; Glucose 110 mg/dL (74-106); Potassium 4.3 mmol/L (3.5-5.1); Sodium Level 141 mmol/L (136-145); Thyroid Stim Hormone (TSH) 5.02 uIU/mL (0.358-3.74)
[2019-06-23] MEDS: dilTIAZem 25 MG/5 ML Vial 10 MG IV BOLUS (13:56)
--- NOTE | 2019-06-23 14:20 | ED.RN ---
PATIENT HEART RATE CONSISTENTLY IN THE 80'S. DR. BARKSDALE NOTIFIED. AT THIS TIME RN TO HOLD CARDIZEM DRIP. RN WILL CONTINUE TO MONITOR PATIENT.
[2019-06-23 14:47] LABS: BNP,B-Type NATRIURETIC PEPTIDE 321.5 pg/mL (0-100)
--- NOTE | 2019-06-23 15:43 | CON.PCM_ITS ---
Reason for Consult Date of Consultation: 06/23/19 Reason for Consultation: Shortness of breath History of Present Illness: KT CARCAMO, is a 83 F who presents to the emergency room with progressive shortness of breath. She is a lady with a history of hypertension, paroxysmal atrial fibrillation who presented to see the nurse practitioner in our office last week after she complained of developing a high heart rate and not feeling well. She was noted to have a heart rate in the 120s. There was mild chest heaviness associated with the above. She has had no dizziness or diaphoresis no lightheadedness near syncope or syncope. She however has noted shortness of breath with exertion. Yesterday her daughter checked on her and noted that she was more short of breath and they decided to go to the emergency room this morning. Cardiology was called to assist in evaluation. Past Medical History Allergies/Adverse Reactions: Allergies ampicillin Allergy (Verified 06/23/19 12:31) Unknown Penicillins Allergy (Verified 06/23/19 12:31) Unknown meperidine HCl [From Demerol] Adverse Reaction (Verified 06/23/19 12:31) Nausea vinyl Adverse Reaction (Uncoded 06/23/19 12:31) Rash Vinyl gloves Home Medications: Ambulatory Orders Medication Instructions Recorded Multivitamins,Therapeutic 1 tab PO DAILY 10/03/13 [Multivitamin] L.acidoph,Paracasei, B.lactis 1 cap PO DAILY 10/21/14 [Probiotic] Omeprazole [Prilosec] 20 mg PO DAILY PRN PRN 10/21/14 Calcium Carbonate/Vitamin D3 1 tab PO DAILY 07/13/17 [Calcium 600-Vit D3 400 Caplet] Gabapentin [Neurontin] 100 mg PO TID PRN PRN 07/13/17 acetaminophen 325 mg tablet 650 mg PO Q6H PRN tab 06/24/18 rivaroxaban 20 mg tablet 20 mg PO DAILY #90 tab 01/10/19 Amiodarone HCl 200 mg PO BID 06/23/19 Losartan Potassium [Cozaar] 25 - 50 mg PO DAILY 06/23/19 Metoprolol Tartrate [Lopressor 25 mg PO BID 06/23/19 (beta kierra)] Past Medical History (Chronic Problems): Chronic Problems (Last Updated 05/30/19 @ 12:21 by Ama Medina) Paroxysmal atrial fibrillation (Chronic) Essential (primary) hypertension (Chronic) Lives: Spouse/ Significant Other Smoking Status: Never smoker Alcohol: None Drugs: None Review of Systems - Review of Systems General: Denies: Fever, Night Sweats, Fatigue HEENT: Denies: Vision Change Cardiovascular: Reports: Shortness of Breath, Shortness of Breath at Rest, Palpitations. Denies: Chest Discomfort, Orthopnea, PND, Peripheral Edema, Lightheadedness, Dizziness, Near Syncope, Syncope Respiratory: Denies: Cough, Sputum Production, Hemoptysis Gastrointestinal: Denies: Hematemesis, Hematochezia, Melena Genitourinary: Denies: Dysuria, Hematuria Muscoloskeletal: Reports: Myalgias Skin: Denies: Rash Neurological: Denies: Dizziness Psychiatric: Denies: Anxiety Endocrine: Denies: Heat Intolerance Hematologic/ Lymphatic: Denies: Anemia Subjectve: Pleasant lady in no distress able to speak in full sentences Objective: Vital Signs Temp Pulse Resp BP Pulse Ox 98 F 99 16 117/89 H 94 06/23/19 12:29 06/23/19 15:04 06/23/19 15:04 06/23/19 15:04 06/23/19 15:04 Oxygen Flow Rate (L/min) 2 Oxygen Delivery Method Nasal Cannula Weight: 143 lb 11.862 oz Body Mass Index (BMI) 25.4 General: Awake, Alert, Oriented x 3 HEENT: PERRL, EOMI, Sclera Non Icteric Neck: Supple, Good ROM, No Lymph Node Enlargement Lungs: Diminished Dagoberto Bases Cardiovascular: Irregular Rhythm, Normal S1, Normal S2, No Murmurs, No Rubs, No Gallops Vascular: No Carotid Bruits, Normal Femoral Pulses, Normal Radial Pulses, Normal Dorsalis Pedal Pulse, Normal Posterior Tibial Pulses Abdomen: Bowel Sounds Present, Soft, Non Tender, No HSM, No Organomegaly Extremities: No Cyanosis, No Clubbing, No edema Musculoskeletal: No Erythema Skin: No Rashes Lymphatic: No Lymph Node Enlargement Neurological: No Focal Motor or Sensory Deficit Psych/Mental Status: Appropriate 06/23/19 12:50: WBC 6.5, RBC 4.80, Hgb 14.1, Hct 44.3, MCV 92.3, MCH 29.4, MCHC 31.8 L, Plt Count 212, MPV 11.5, Immature Gran % (Auto) 0.300, Neut % (Auto) 72.6 H, Lymph % (Auto) 15.1 L, [place] % (Auto) 9.8, Eos % (Auto) 1.4, Baso % (Auto) 0.8, Absolute Neuts (auto) 4.7, Nucleated RBC % 0 06/23/19 12:50: Sodium 141, Potassium 4.3, Chloride 109 H, Carbon Dioxide 27.0, Anion Gap 5, BUN 22 H, Creatinine 1.26 H, Est GFR (MDRD) Af Amer 52 L, Est GFR (MDRD) Non-Af 43 L, BUN/Creatinine Ratio 17.5, Glucose 110 H, Calcium 9.6, Troponin I < 0.015 06/23/19 13:05: B-Natriuretic Peptide 321.5 H Rhythm: EKG: Atrial fibrillation with a rapid ventricular response rate Assessment/Plan 1. Mild congestive heart failure * The above is likely secondary to diastolic dysfunction in the atrial fibrillation with a rapid ventricular response rate. She had an echocardiogram almost 2 years ago which demonstrated preserved ejection fraction and stage I diastolic dysfunction and she had a pharmacologic myocardial perfusion stress test done last year which did not demonstrate any evidence of ischemia. * Recommendation will be to give her a dose of intravenous Lasix and she will continue at home with oral Lasix 40 mg a day. * 2. Atrial fibrillation with rapid ventricular response rate * Patient presents with atrial fibrillation with a rapid ventricular response rate. She has been anticoagulated and has been on a beta-kierra for rate control. In addition she has also been on amiodarone and the plan will be to continue this. * The patient has been n.p.o. for at least 6 hours and after discussion with her it may be prudent to attempt to cardiovert her back to sinus rhythm and have her continue the current medical therapy. She is agreeable to the above and have discussed this with the ER physician. * 3. Hypertension * Her blood pressure is under good control at this time and the plan to be to continue her current medical therapy. * * We will schedule a follow-up to see here in the office within the next 2 weeks. * * Thank you for allowing me to participate in the care of your patient. Please don't hesitate to call if any issues arise
[2019-06-23] MEDS: fentaNYL 100 MCG/2 ML Ampul 25 MCG IV (16:18)
--- NOTE | 2019-06-23 16:30 | EKG12_ITS ---
Test Reason : SOB Blood Pressure : / mmHG Vent. Rate : 113 BPM Atrial Rate : 277 BPM P-R Int : 000 ms QRS Dur : 080 ms QT Int : 338 ms P-R-T Axes : 000 071 -10 degrees QTc Int : 463 ms Atrial flutter with variable A-V block Nonspecific T wave abnormality Abnormal ECG Confirmed by TEE HINKLE, CECI ([id number]), subeditor SHALA AQUINO ([id number]) on 06/27/2019 9:47:50 AM Referred By: SHAMIR
[2019-06-23] MEDS: Ondansetron 4 MG/2 ML Vial IV ×2 (16:34→17:16)
--- NOTE | 2019-06-23 17:19 | ED.RN ---
PATIENT'S BP TRENDING DOWNWARD BUT STILL WNL, PER DR. BARKSDALE HOLD LASIX UNLESS PATIENT'S BP IS SYSTOLIC OVER 120. RN WILL CONTINUE TO MONITOR PATIENT.
--- NOTE | 2019-06-23 19:51 | ED.RN ---
pt walked on room air around ED with cont pulse ox on. SpO2: 92%-100% HR: 45-54. pt back to bed with no c/o difficulty breathing but feels a little weak from the medicine. walked steady with no walker. pt remains on room air with no difficulties. Dr. Shaikh aware. dtr at bedside.
== END 2019-06-23 19:50 | disposition home or self-care (01) ==
PROVIDERS: Emergency Provider Emergency Medicine; Family Provider Family Medicine; PCP Family Medicine
DX: I48.0 Paroxysmal atrial fibrillation (principal); I11.0 Hypertensive heart disease with heart failure; I50.9 Heart failure, unspecified; Z86.19 Personal history of other infectious and parasitic diseases; Z79.01 Long term (current) use of anticoagulants; Z79.899 Other long term (current) drug therapy
CPT/HCPCS: 92960; 71046; 80048; 83880; 84443; 84484; 85025; 93005; 96374; 96375; 96376; 99284; A4216; J2405

== ENCOUNTER → 2019-07-02 15:38 | Outpatient (CLI) | payer MEDICARE, OTHER, SELFPAY ==
[2019-07-02 12:46] VITALS: BMI 24.0
[2019-07-02 17:21] LABS: Anion Gap 3 (5-15); BUN 35 mg/dL (7-18); BUN/Creat Ratio 22.4 RATIO (10-20); Calcium,Total 9.5 mg/dL (8.5-10.1); Chloride 106 mmol/L (98-107); Creatinine, Serum 1.56 mg/dL (0.55-1.02); EST Glomerular Filtration Rate 34 mL/min (>60); Est Glom Filt Rate - Afr Amer 41 mL/min (>60); Glucose 88 mg/dL (74-106); Sodium Level 141 mmol/L (136-145)
== END ==
PROVIDERS: PCP Family Medicine; Referring Provider Internal Medicine Cardiovascular Disease; Visit Provider Internal Medicine Cardiovascular Disease
DX: I10 Essential (primary) hypertension (principal)
CPT/HCPCS: 36415; 80048

== ENCOUNTER → 2019-08-11 11:28 | Outpatient (CLI) | payer MEDICARE, OTHER, SELFPAY ==
[2019-07-02 12:46] VITALS: BMI 24.0
[2019-08-11 13:06] LABS: Anion Gap 6 (5-15); BUN 20 mg/dL (7-18); BUN/Creat Ratio 17.7 RATIO (10-20); Calcium,Total 9.4 mg/dL (8.5-10.1); Chloride 106 mmol/L (98-107); Creatinine, Serum 1.13 mg/dL (0.55-1.02); EST Glomerular Filtration Rate 49 mL/min (>60); Est Glom Filt Rate - Afr Amer 59 mL/min (>60); Glucose 90 mg/dL (74-106); Potassium 4.2 mmol/L (3.5-5.1); Sodium Level 142 mmol/L (136-145)
== END ==
PROVIDERS: PCP Family Medicine; Referring Provider Nurse Practitioner Family; Visit Provider Nurse Practitioner Family
DX: I48.0 Paroxysmal atrial fibrillation (principal); I10 Essential (primary) hypertension
CPT/HCPCS: 36415; 80048

== ENCOUNTER → 2019-08-18 11:18 | Outpatient (CLI) | payer MEDICARE, OTHER, SELFPAY ==
[2019-07-02 12:46] VITALS: BMI 24.0
== END ==
PROVIDERS: PCP Family Medicine; Referring Provider Nurse Practitioner Family; Visit Provider Nurse Practitioner Family
DX: I48.0 Paroxysmal atrial fibrillation (principal); R00.1 Bradycardia, unspecified
CPT/HCPCS: 93225; 93226

== ENCOUNTER 2019-10-16 10:19 | Day surgery (SDC) | payer MEDICARE, OTHER, SELFPAY ==
[2019-10-01 10:48] VITALS: BMI 23.0
--- NOTE | 2019-10-13 10:40 | RAD_ITS ---
STUDY: X-RAY CHEST REASON FOR EXAM: Female, 83 years old. FOR [employer] PPM IMPLANT, HX BATES TECHNIQUE: PA and lateral views of the chest. COMPARISON: Comparison is made with prior study dated June 23, 2019. FINDINGS: Hyperinflation. Scattered calcified granulomas. There is no demonstrated pleural abnormality. Normal size heart. Normal mediastinum and jerel. Normal visualized pulmonary arteries. There is atherosclerotic calcification of the aortic arch with tortuosity. There are diffuse degenerative changes of the visualized thoracic spine. Normal visualized ribs, clavicles, and shoulders. There is no demonstrated abnormality of the visualized soft tissue structures of the upper abdomen. RAD/Chest PA and Lateral IMPRESSION: Hyperinflation. The lungs are clear. Electronically Signed: Vito Duncan, at 11:17 EDT , Service support ,
[2019-10-13 11:05] LABS: Bacteria 0 SEEN /hpf (None Seen); Mucous, Urine 0 SEEN /hpf (<or=2+); Squamous Epithelial Cells - UA 0 SEEN /hpf (5-10); White Blood Cells 0 SEEN /hpf (0-5)
[2019-10-13 11:39] LABS: Color, Urine Yellow (Yellow); Glucose, Dipstick Normal (Normal); Ketone-Dipstick Negative (Negative); Leukocyte Esterase-Dipstick Negative /ul (Negative); Nitrite-Dipstick Negative (Negative); Occult Blood-Urine Negative /ul (Negative); Protein-Dipstick Negative (Negative); Specific Gravity, Urine 1.015 (1.002-1.030); Urine Bilirubin Dipstick Negative (Negative); Urine Clarity Clear (Clear); Urine Urobilinogen Normal (Normal)
[2019-10-13 11:41] LABS: Hemoglobin 13.7 g/dL (12.0-15.0); Mean Corp Hgb Conc 31.1 g/dL (32-36); Mean Corpuscular Hgb 29.1 pg (27.0-32.0); Mean Corpuscular Volume 93.6 fL (81-99); Mean Platelet Vol. 11.5 fl (6.2-12.0); Platelet Count 185 K/mm3 (150-450); RBC Distribution Width CV 14.6 % (11.6-14.6); RBC Distribution Width SD 50.4 fl (35.1-43.9); White Blood Count 5.1 K/mm3 (4.4-11.0)
[2019-10-13 11:56] LABS: Red Blood Cells-Urine 0-5 SEEN /hpf (0-5)
[2019-10-13 11:59] LABS: International Normalized Ratio 1.4; Prothrombin Time (Protime)PT. 16.9 SECONDS (11.7-14.9)
[2019-10-13 12:11] LABS: Anion Gap 1 (5-15); BUN 27 mg/dL (7-18); BUN/Creat Ratio 25.5 RATIO (10-20); Calcium,Total 9.3 mg/dL (8.5-10.1); Chloride 108 mmol/L (98-107); Creatinine, Serum 1.06 mg/dL (0.55-1.02); EST Glomerular Filtration Rate 52 mL/min (>60); Est Glom Filt Rate - Afr Amer 63 mL/min (>60); Glucose 97 mg/dL (74-106); Potassium 4.1 mmol/L (3.5-5.1); Sodium Level 139 mmol/L (136-145); Thyroid Stim Hormone (TSH) 4.81 uIU/mL (0.358-3.74)
--- NOTE | 2019-10-15 09:25 | PCM.HP.BLA ---
History and Physical Date of Admission: 10/16/19 KT CARCAMO, is a 83 F who presents today for Micra Pacemaker insertion. She is a lady with a history of hypertension and paroxysmal atrial fibrillation. She had complained of shortness of breath and elevated heart rate and was seen in the emergency room. She was noted to have mild diastolic heart failure and atrial fibrillation with a rapid ventricular response rate. She was cardioverted back to sinus rhythm during that visit. You do remember that her previous echocardiogram had demonstrated ejection fraction of 65%. She was also started on amiodarone and metoprolol and she is done well with this. She is maintaining sinus rhythm. She has lost some weight but she still has some shortness of breath with exertion. She complained of significant fatigue and therefore we discontinued the metoprolol and she says that she has been feeling much better. She underwent a 48-hour Holter monitor which demonstrated an average heart rate of 51 bpm with a minimum heart rate being 30 bpm and a maximum of 91 bpm. She did have a 3.2-second pause and a 5 beat run of a wide complex tachyarrhythmia. She continues to complain of some fatigue but no dizziness and no near syncope. Her heart rate she says has been in the 40s and 50s and she is short of breath with exertion. Her TSH was also noted to be elevated and she says that her PCP have put her on levothyroxine and she is waiting for a repeat blood test. Her blood pressure is under good control at this particular time. Intake Vital Signs: See EMR Intake Visit Reasons: Micra PPM insertion Allergies ampicillin Allergy (Verified 10/01/19 10:49) Unknown Penicillins Allergy (Verified 10/01/19 10:49) Unknown meperidine HCl [From Demerol] Adverse Reaction (Verified 10/01/19 10:49) Nausea vinyl Adverse Reaction (Uncoded 10/01/19 10:49) Rash Medications See EMR Ejection fraction %: 65 to 70 [facility] Medical History Chronic diastolic (congestive) heart failure (Chronic) Paroxysmal atrial fibrillation (Chronic) Essential (primary) hypertension (Chronic) Hypothyroidism (Acute) C. difficile colitis (Resolved) E coli infection (Resolved) Surgical History History of cardioversion (Resolved 06/23/19) History of hysterectomy (Resolved) History of right hip replacement (Resolved) History of total right knee replacement (Resolved) Family History Brother Cancer Mother Kidney disease Social History (Updated 10/01/19 @ 11:[address] Ant Thayer MD) Smoking Status: Never smoker alcohol intake: current alcohol intake frequency: holidays/special occasions only Alcohol type: wine caffeine: Yes Type: coffee Number of servings: 1 ROS Const Const: Positive for weakness and other (Denies dizziness and lightheadedness since stopping metoprolol); negative for fatigue, headache(s), frequent falls, difficulty sleeping or excessive sweating Eyes Eyes: Negative for loss of peripheral vision, transient loss of vision, blurry vision, double vision or tunnel vision ENT ENT: Negative for headache(s), dizziness, Nosebleed/epistaxis or balance problems Cardio Chest Pain: Yes (episodes chest pressure very brief) Palpitations: Yes (occasional burst) feels like its: fast Edema: None Muscle aches with walking: None Resp Respiratory: Positive for SOB with activity (Walking dog and climbing stair); negative for SOB at rest, SOB orthopnea\SOB lying down, Cough or paroxysmal nocturnal dyspnea GI GI: Negative nausea, vomiting, heartburn or black,tarry stools : Negative for hematuria Musc Musc: Negative for muscle aches/ myalgia, muscle weakness, joint pain or balance problems Skin Skin: Negative non-healing lesions, rash or unusual bruising Neuro Neuro: Positive for weakness; negative for dizziness, lightheadedness, near syncope, syncope, orthostatic symptoms, frequent falls, headache(s), blurry vision, double vision or lack of coordination Derrick Hematologic/Lymphatic: Negative for easy bleeding or easy bruising Endo Endo: Negative for fatigue, excessive sweating or increased thirst/drinking Psych Psych: Negative for anxiety or depression Allergy Allergy/Immunology: Negative for hives, Negative for rash Cardiology Exam Const Appearance: cooperative, healthy appearing and comfortable Nutritional Appearance: average body habitus Orientation: alert, awake and oriented x3 Physical exam was not completed because this was a phone visit. Head Head: normal to inspection Ears: hearing grossly normal bilaterally Face and Sinus: face symmetric Mouth: oral mucosae normal Eyes General: appearance normal, both eyes and all related structures Eyelids: eyelids normal Conjunctivae: conjunctivae normal Pupils: PERRL Extremities Lower Extremity Edema: None: Bilateral Assessment & Plan 1. Paroxysmal atrial fibrillation I48.0 Plan She does have evidence of paroxysmal atrial fibrillation. She appears to have evidence of sick sinus syndrome. She did not tolerate the beta-kierra and that was discontinued. She will proceed Micra permanent pacemaker implantation today. 2. Dyspnea on exertion R06.00 Plan She does have some dyspnea on exertion which is likely secondary to mild diastolic heart failure her ejection fraction was noted to be normal. She will go back on Lasix 20 mg twice a week only. 3. Essential (primary) hypertension I10 Plan Her blood pressure is controlled but she did complain of occasional chest discomfort when her blood pressure is elevated during her recent office visit. Her amlodipine was increased to 5 mg a day. Thank you for allowing us to participate in the patients plan of care, if you have any questions please do not hesitate to call. This note was generated using a voice recognition system and there may be incorrect words, spelling or punctuation that were not noted when reviewing the office note prior to saving.
[2019-10-15 14:27] VITALS: BMI 23.0
[2019-10-16] VITALS (13 sets, daily range): BP systolic 111–152; BP diastolic 54–79; PULSE 59–64; RESP 16–18; TEMP 36.8; O2SAT 94–99; BMI 21.9
--- NOTE | 2019-10-16 12:38 | CL.IE_ITS ---
Patient: KT CARCAMO Study Date: 10/16/2019 Performing: Ant Thayer MD : [id number] Age: 83 Gender: female PROCEDURES PERFORMED [id number] PACER, INSERT/REPLACE INDICATIONS Sinoatrial node dysfunction/Sick sinus syndrome PROCEDURE DETAILS The patient was brought to the Catheterization Lab in the postabsorptive nonsedated state. Infor med consent was obtained prior to the procedure. . The patient tolerated the procedure well. Estimated Blood Loss: < 10 mls IMPLANTED / EX-PLANTED DEVICES DEVICE PARAMETERS VENTRICULAR LEAD PARAMETERS: R wave (mV) - 7.8 impedence (OHMS) - 960 threshold (V) - .5 DEVICE PARAMETERS: Mode- VVIR Lower rate- 60 Upper rate- 120 CONCLUSIONS / RECOMMENDATIONS Device Conclusions: Successful implantation of a single chamber pacemaker Device Recommendations: Follow up with Primary Care Physician PROCEDURE MEDICATIONS Fentanyl 50 mcg IV Versed 1 mg IV Versed 1 mg IV Oxygen: 2 L/min via nasal cannula Heparin 5000 unit(s) IV 10/16/2019 12:24:04 Protamine 30 mg IV 10/16/2019 12:33:34 Signed By Ant Thayer MD On 10/16/2019 12:37:03 Ant Thayer MD
--- NOTE | 2019-10-16 15:56 | PCM.OP.PRO ---
Procedure Report Diagnosis: Patient with symptomatic bradycardia: [ ]. Planned procedure - insertion of VVI leadless pacemaker via right femoral vein (transcatheter pacing system) After informed consent and procedural antibitoics, the patient was brought to the [facility] catheterization laboratory and the right and left groins were prepped and draped in a sterile manner. Intermitent bolus of versed and fentanyl and 1% subcutaneous lidocaine were used for sedation and analgesia. Femoral vein access was achieved with Seldinger technique and confirmed by positioning of the guide wire into the superior vena cava under fluoroscopic guidance. Over the wire, the Brendan dilator was used to dilate the femoral vein access up to 20Fr. The Brendan dilator was removed. After thorough flushing of the sheath with hepariized saline, the 23Fr delivery sheath was inserted and advanced over the wire under fluoroscopic guidance to the floor of the right atrium. A bolus of intravenous heparin was administered. The delivery catheter and leadless pacemaker were then brought to the field and was flushed thoroughly with heparinized saline used to express all air distally. Saline flush also was used to flush the suture at the proximal end of the delivery sheath handle. Through the delivery sheath, the delivery catheter and l;eadless pacemaker were advanced through the sheath to the floor of the right atrium, under fluoroscopic guidance. The delivery catheter and pacemaker were advanced beyond the delivery sheath and with appropriate deflection and manipulation, the delivery catheter and pacemaker were advanced under fluoroscopic guidance ([place] projection) across the tricuspid valve and into the right ventricle. In the SWEDISH projection, the delivery sheath was positioned in firm apposition with the right ventricular septal wall. Contrast ijection confirmed firm contact with the right ventircular wall along the septaum and excluded an apical position. The delivery sheath was then flushed with heparinized saline. The leadelss pacemaker was then deployed and the delivery sheath was pulled back to an adequate position to complete the tug test. Under a magnified view with cine imaging, the tug test was completed and confirmed no less than 2 of the 4 tines were in excellent contact with the myocardium and there was no dislodgement of the pacemaker. Testing was performed of the device and acceptable sensing, impedance and capture were confirmed. The testing of the pacemaker was repeated multiple times and confirmed to be adequate and stable. The delivery sheath was flushed again with heparinized saline. One end of the suture was then cut and the suture was slowly withdrawn from the delviery sheath. Once the suture was removed, the pacemaker was tested again and confirmed appropriate and stable electical parameters. There was no change in position of the device after suture was removed. Device parameters were as follows. R wave 7.8 mV: Pacing impedance 960 ohms: Pacing threshold 0.5 V at 0.24 ms. The delivery catheter and sheath were then removed from the right femoral vein. Hemostasis was obtained with surgical purse string closure with use of 3 way stopcock and manual pressure. Protamine was then administered. Patient left the room in stable condition with the pacemaker programmed to appropriate parameters. There were no complications. Device product information, electrical data and serial number are provided in the chart.
[2019-10-17 03:00] VITALS: BP 114/75; PULSE 61; PULSE 62; RESP 18; TEMP 36.4; O2SAT 96
[2019-10-17] MEDS: Levothyroxine 50 MCG Tablet PO (05:43)
[2019-10-17] MEDS: Acetaminophen 325 MG Tablet 650 MG PO ×2 (05:43)
[2019-10-17] MEDS: Multivitamins,Therapeutic Tablet 1 TABLET PO (08:11)
[2019-10-17] MEDS: Calcium Carb/Vitamin D 1 TABLET Tablet PO (08:11)
[2019-10-17] MEDS: Losartan Potassium 50 MG Tablet PO (08:12)
[2019-10-17] MEDS: Amiodarone 200 MG Tablet PO (08:12)
[2019-10-17] MEDS: amLODIPine 5 MG Tablet PO (08:12)
--- NOTE | 2019-10-17 08:49 | PCM.PN.CARD ---
Subjectve: Patient seen and evaluated. Appears to be doing well. Objective: Vital Signs Temp Pulse Resp BP Pulse Ox 97.6 F L 61 18 114/75 96 10/17/19 03:00 10/17/19 03:00 10/17/19 03:00 10/17/19 03:00 10/17/19 03:00 Oxygen Delivery Method Room Air Weight: 130 lb Body Mass Index (BMI) 21.9 Intake and Output for Last 24 Hours 10/15/19 10/16/19 10/17/19 23:59 23:59 23:59 Intake Total 250 / 250 Output Total 800 / 800 650 / 650 Balance -550 / -550 -650 / -650 General: Awake, Alert, Oriented x 3 HEENT: PERRL, EOMI, Sclera Non Icteric Neck: Supple, Good ROM, No Lymph Node Enlargement Lungs: Clear to auscultation Cardiovascular: Regular Rhythm, Normal S1, Normal S2, No Murmurs, No Rubs, No Gallops Vascular: No Carotid Bruits, Normal Femoral Pulses, Normal Radial Pulses, Normal Dorsalis Pedal Pulse, Normal Posterior Tibial Pulses Abdomen: Bowel Sounds Present, Soft, Non Tender, No HSM, No Organomegaly Extremities: No Cyanosis, No Clubbing, No edema Neurological: No Focal Motor or Sensory Deficit Rhythm: EKG: ECHO: Stress Test: Cardiac Cath: PCI: CT Surgery: Holter monitor: EPS: PPM: CXR: Chest CT Scan: Medical Necessity - Tobacco Use Smoking Status: Never smoker Assessment/Plan 1. Status post permanent pacemaker implantation with a Micra device. Device check this morning was normal functioning. Groin check is normal. Will discharge patient for outpatient follow-up.
--- NOTE | 2019-10-17 08:50 | PCM.DC.PACE ---
Discharge Diet: No Restrictions Discharge Activity: May Not Drive Call your doctor if your incision/area has: Continuous Slow Oozing, Sudden Increased Bleeding, Increased Pain/ Swelling, Increased Redness, Foul Smelling Discharge, Swelling at the incision site Call your doctor if you observe: Fever of 101 or Higher, Shortness of breath, Dizziness, Fainting spells, Swelling in the ankles, Chest pain, Prolonged hiccoughing, Increased palpitations (irregular heartbeat) Additional Dressing/Incision Instructions:: When dressing is removed, wash and dry incision. Keep covered with a light bandage if it is rubbing against your clothing. Do not cover the incision with an airtight bandage. Change the bandage daily. Do not remove steri strips. The strips will fall off on their own. Additional Instructions: Signs and Symptoms to Report to Your Doctor at Once - call your doctor's office or Doctor's Registry ([phone]) Call 911 or go to the nearest Emergency Department if you feel you need urgent care. *Infection (fever, increased redness or swelling at the incision site, drainage from the incision increased pain at the pacemaker site) *Shortness of breath *Dizziness *Fainting spells *Swelling in the ankles *Chest pain *Prolonged hiccoughing *Increased palpitaitons (irregular heartbeat) Medications: Take your pain medication as directed. Refer to your discharge instruction sheet for a list of medications you are to take. Allergies/Adverse Reactions: Allergies ampicillin Allergy (Verified 10/01/19 10:49) Unknown Penicillins Allergy (Verified 10/01/19 10:49) Unknown scopolamine Allergy (Verified 10/16/19 14:02) Confusion, Agitation meperidine HCl [From Demerol] Adverse Reaction (Verified 10/01/19 10:49) Nausea vinyl Adverse Reaction (Uncoded 10/01/19 10:49) Rash Vinyl gloves Medications to take at Discharge Multivitamins,Therapeutic [Multivitamin] 1 tab PO DAILY 10/03/13 L.acidoph,Paracasei, B.lactis [Probiotic] 1 cap PO DAILY 10/21/14 Omeprazole [Prilosec] 20 mg PO DAILY PRN PRN 10/21/14 Calcium Carbonate/Vitamin D3 [Calcium 600-Vit D3 400 Caplet] 1 tab PO DAILY 07/13/17 Gabapentin [Neurontin] 100 mg PO TID PRN PRN 07/13/17 acetaminophen 325 mg tablet 650 mg PO Q6H PRN tab 06/24/18 amiodarone 200 mg tablet 200 mg PO DAILY #90 tab 07/02/19 losartan 50 mg tablet 50 mg PO DAILY #90 tab 07/02/19 rivaroxaban 20 mg tablet 20 mg PO DAILY #90 tab 07/02/19 amlodipine 5 mg tablet 5 mg PO DAILY #90 tab 10/01/19 diclofenac sodium 1 % topical gel 2 g TOPICAL ONCE PRN 10/01/19 furosemide 20 mg tablet 20 mg PO .sunday/sunday #30 tab 10/01/19 levothyroxine 50 mcg tablet 50 mcg PO DAILY tab 10/01/19 vancomycin 125 mg capsule 125 mg PO DAILY 10/01/19 Primary Care Physician: Luis Carr III, MD [Primary Care Provider] - Test Results: Test results from this visit will be discussed in further detail at your follow-up appointment, if applicable. When: PACER clinic as per nurse Proposed Discharge Date: 10/17/19
== END 2019-10-17 08:52 | disposition home or self-care (01) ==
LOC: CLSP 10:20 → PCU 13:04
PROVIDERS: PCP Family Medicine; Referring Provider Internal Medicine Cardiovascular Disease; Visit Provider Internal Medicine Cardiovascular Disease
DX: I49.5 Sick sinus syndrome (principal); I48.0 Paroxysmal atrial fibrillation; I11.0 Hypertensive heart disease with heart failure; I50.32 Chronic diastolic (congestive) heart failure; E03.9 Hypothyroidism, unspecified; Z86.19 Personal history of other infectious and parasitic diseases; Z79.01 Long term (current) use of anticoagulants; Z79.899 Other long term (current) drug therapy
CPT/HCPCS: 33274; 36415; 71046; 80048; 81001; 84443; 85027; 85610; 93005; 99152; 99153; C1894; J7040; Q9967; C1769

== ENCOUNTER → 2019-12-22 08:51 | Outpatient (CLI) | payer MEDICARE, OTHER, SELFPAY ==
[2019-10-16 13:32] VITALS: BMI 21.9
[2019-12-22 09:23] LABS: Hemoglobin 14.8 g/dL (12.0-15.0); Mean Corp Hgb Conc 31.5 g/dL (32-36); Mean Corpuscular Hgb 30.2 pg (27.0-32.0); Mean Corpuscular Volume 95.9 fL (81-99); Mean Platelet Vol. 11.4 fl (6.2-12.0); Platelet Count 211 K/mm3 (150-450); RBC Distribution Width CV 13.7 % (11.6-14.6); RBC Distribution Width SD 48.6 fl (35.1-43.9)
[2019-12-22 09:47] LABS: BNP,B-Type NATRIURETIC PEPTIDE 563.2 pg/mL (0-100)
[2019-12-22 09:57] LABS: Anion Gap 3 (5-15); BUN 20 mg/dL (7-18); BUN/Creat Ratio 17.1 RATIO (10-20); Chloride 110 mmol/L (98-107); Creatinine, Serum 1.17 mg/dL (0.55-1.02); EST Glomerular Filtration Rate 47 mL/min (>60); Est Glom Filt Rate - Afr Amer 57 mL/min (>60); Glucose 96 mg/dL (74-106); Potassium 4.2 mmol/L (3.5-5.1); Sodium Level 141 mmol/L (136-145)
== END ==
PROVIDERS: PCP Family Medicine; Referring Provider Internal Medicine Cardiovascular Disease; Visit Provider Internal Medicine Cardiovascular Disease
DX: I50.32 Chronic diastolic (congestive) heart failure (principal); Z79.01 Long term (current) use of anticoagulants; E03.9 Hypothyroidism, unspecified; Z79.899 Other long term (current) drug therapy
CPT/HCPCS: 36415; 80048; 83880; 84443; 85027

== ENCOUNTER → 2020-01-01 12:31 | Outpatient (CLI) | payer MEDICARE, OTHER, SELFPAY ==
[2019-12-24 09:42] VITALS: BMI 24.4
--- NOTE | 2020-01-01 12:32 | ECHOD_ITS ---
Reason For Study: ARRHYTHMIA Procedure This was a 2D Doppler, Color Flow transthoracic echocardiogram. Exam performed in department. Left Ventricle Normal LV size. Left ventricular systolic function is normal. The estimated ejection fraction is 62 %. No regional wall motion abnormalities noted. Right Ventricle Normal RV size. Pacer shadowing seen. Normal systolic function. Atria The left atrium is mildly enlarged. Normal right atrium. Mitral Valve Normal mitral valve. Tricuspid Valve Normal tricuspid valve. Mild tricuspid valve insufficiency. Pulmonary artery systolic pressure is 28 mmHg. Aortic Valve Trisinus/trileaflet aortic valve. Pulmonic Valve Normal pulmonic valve. Great Vessels Normal aortic root. The pulmonary artery is normal size. Normal inferior vena cava. Pericardium/Pleural No pericardial effusion. MMode/2D Measurements & Calculations LVIDd: 4.3 cm IVSd: 0.95 cm Ao root diam: 3.6 cm LVIDs: 2.6 cm LVPWd: 0.92 cm RVDd: 3.2 cm FS: 40.6 % LAV(MOD-bp): 71.6 ml LA A4 area: 22.6 cm2 LA dimension(2D): 4.0 cm LAV(MOD-bp) Indexed: 44.2 ml/m2 LAV(MOD-sp2): 70.2 ml LAV(MOD-sp4): 72.8 ml RA A4 area: 19.8 cm2 Time Measurements MV dec time: 0.28 sec Doppler Measurements & Calculations MV E max john: 95.9 cm/sec Lat Peak E' John: 8.5 cm/sec Med Peak E' John: 6.8 cm/sec MV A max john: 70.3 cm/sec E/E' lat: 11.3 E/E' med: 14.2 MV E/A: 1.4 Ao V2 max: 115.4 cm/sec LV V1 max: 84.1 cm/sec PA V2 max: 98.0 cm/sec Ao max P.3 mmHg LV V1 max P.8 mmHg PI end-d john: 60.9 cm/sec TR max john: 242.5 cm/sec TR max P.5 mmHg Interpretation Summary Normal LV size. Left ventricular systolic function is normal. The left atrium is mildly enlarged. Mild tricuspid valve insufficiency. Pulmonary artery systolic pressure is 28 mmHg. The estimated ejection fraction is 62 %. Ordering Physician: Ant Thayer Referring Physician: BRYNN ESCALONA Performed By: Lizbet Mallory, XENA, RVT
== END ==
PROVIDERS: PCP Family Medicine; Referring Provider Internal Medicine Cardiovascular Disease; Visit Provider Internal Medicine Cardiovascular Disease
DX: I50.32 Chronic diastolic (congestive) heart failure (principal)
CPT/HCPCS: 93306

== ENCOUNTER → 2020-03-02 07:40 | Outpatient (CLI) | payer MEDICARE, OTHER, SELFPAY ==
[2019-12-24 09:42] VITALS: BMI 24.4
--- NOTE | 2020-03-02 07:43 | BI_ITS ---
MAMMOGRAPHY - BILATERAL SCREENING REASON FOR EXAM: Female, 84 years old. Routine annual screening examination. PERTINENT HISTORY: Non-contributory. TECHNIQUE: Digital bilateral breast heide (3D mammographic acquisition) in the CC and MLO projections. 2-D mediolateral oblique (MLO) and craniocaudad (CC) views of both breasts were obtained. CAD: Full Field Digital Mammography with Computer Added Detection was performed. COMPARISON: Comparison is made with prior examination dated 09/13/2018 and 07/18/2017. FINDINGS: Breast Composition: The breasts are heterogeneously dense, which may obscure small masses. There are no dominant masses or suspicious calcifications. Stable appearance of the left secretory calcifications. No other significant abnormalities are identified. There has been no significant change since the prior study. BI/SCREEN MAMM (CAD) W/HEIDE BILAT IMPRESSION: Stable bilateral screening mammogram. Yearly follow-up mammogram recommended. (A) ASSESSMENT CATEGORY: BIRADS Category 1: Negative. A letter regarding these results will be sent to the patient by the facility within 30 days. Approximately 10% of breast cancers are not detected by mammography. A normal mammogram should not delay biopsy of a clinically suspicious abnormality. [id number] Electronically Signed: Vito Duncan, at 9:28 EDT , Service support ,
== END ==
PROVIDERS: PCP Family Medicine; Referring Provider Family Medicine; Visit Provider Family Medicine
DX: Z12.31 Encounter for screening mammogram for malignant neoplasm of breast (principal)
CPT/HCPCS: 77063; 77067

== ENCOUNTER → 2020-11-02 14:32 | Outpatient (CLI) | payer MEDICARE, OTHER, SELFPAY ==
[2020-11-02 13:55] VITALS: BMI 24.7
[2020-11-02 16:28] LABS: BNP,B-Type NATRIURETIC PEPTIDE 371.1 pg/mL (0-100)
== END ==
PROVIDERS: PCP Family Medicine; Referring Provider Internal Medicine Cardiovascular Disease; Visit Provider Internal Medicine Cardiovascular Disease
DX: I50.32 Chronic diastolic (congestive) heart failure (principal)
CPT/HCPCS: 36415; 83880

== ENCOUNTER 2020-11-16 08:06 | Emergency (ER) | payer MEDICARE, OTHER, SELFPAY ==
[2020-11-02 13:55] VITALS: BMI 24.7
[2020-11-16 08:08] VITALS: BP 147/80; PULSE 60; RESP 16; TEMP 36.2; O2SAT 97; BMI 24.7
[2020-11-16] MEDS: Oxymetazoline 0.05% 1 SPRAY SPRAY.BTL NASAL (09:23)
[2020-11-16] MEDS: Mixture 30 ML Bottle 5 ML TOPICAL (09:24)
--- NOTE | 2020-11-16 09:37 | EDS_ITS ---
HPI History of Present Illness Chief Complaint: Nosebleed Narrative Narrative: Patient is a 85-year-old female on chronic anticoagulation secondary to atrial fibrillation present with epistaxis. Patient states over the past few days she been having intermittent nosebleeds however this morning she woke up and felt there is bleeding in the back of her throat and nose her nose is bleeding from the right side. She is unable to get this stopped despite applying pressure so she came to the emergency room. She notes she does have a polyp in her nose and does follow with Dr. Verduzco, ENT. Patient denies any lightheadedness or dizziness. She denies any trauma to her nose. She notes th at she has been coughing a little bit and had a dry nose. No other complaints at this time. She denies any other bleeding. [facility] Medical History C. difficile colitis Chronic diastolic (congestive) heart failure E coli infection Essential (primary) hypertension Hemorrhoid Hypothyroidism Junctional bradycardia Paroxysmal atrial fibrillation Sick sinus syndrome Sinoatrial node dysfunction Home Medications multivitamin with folic acid 1 tab PO DAILY 10/03/13 [History Last Taken 10/15/19 08:00] gabapentin 100 mg PO TID PRN PRN 07/13/17 [History Last Taken 06/16/19] acetaminophen 325 mg tablet 650 mg PO Q6H PRN tab 06/24/18 [History Last Taken 06/22/19] levothyroxine 100 mcg tablet 100 mcg PO DAILY 04/23/20 [History Last Taken Unknown] amiodarone 200 mg tablet 200 mg PO DAILY #90 tab 11/02/20 [Rx Last Taken Unknown] amlodipine 5 mg tablet 5 mg PO DAILY #90 tab 11/02/20 [Rx Last Taken Unknown] losartan 50 mg tablet 50 mg PO DAILY #90 tab 11/02/20 [Rx Last Taken Unknown] omeprazole 20 mg capsule,delayed release 20 mg PO DAILY 11/02/20 [History Last Taken Unknown] rivaroxaban 20 mg tablet 20 mg PO DAILY #90 tab 11/02/20 [Rx Last Taken Unknown] furosemide 20 mg tablet 20 mg PO .M/W/F #90 tab 11/03/20 [Rx Last Taken Unknown] Allergy/AdvReac Type Severity Reaction Status Date / Time ampicillin Allergy Unknown Verified 11/02/20 13:57 Penicillins Allergy Unknown Verified 11/02/20 13:57 scopolamine Allergy Confusion, Verified 11/02/20 13:57 Agitation meperidine HCl [From Demerol] AdvReac Nausea Verified 11/02/20 13:57 vinyl AdvReac Rash Uncoded 11/02/20 13:57 Family History Brother Cancer Mother Kidney disease Surgical History History of cardioversion (06/23/19) History of hysterectomy 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) History of right hip replacement History of total right knee replacement Social History Smoking Status: Never smoker alcohol intake: current alcohol intake frequency: holidays/special occasions only Alcohol type: wine caffeine: Yes Type: coffee Number of servings: 1 ROS ROS ED Constitutional Constitutional ED: Denies chills, fever(s) or malaise Eyes Eyes: Denies blurry vision or loss of vision ENT ENT ED: Reports other Details: Nosebleed ; Denies rhinorrhea or sore throat Cardiovascular Cardiovascular: Denies chest pain or dizziness Respiratory/Chest Respiratory/Chest: Denies cough or dyspnea Gastrointestinal Gastrointestinal: Denies nausea or vomiting Genitourinary Genitourinary ED: Denies dysuria or hematuria Musculoskeletal Musculoskeletal: Denies arthralgias or myalgias Integumentary Denies rash or wounds Neurologic Neurologic: Denies focal weakness or headache(s) Psychiatric Psychiatric: Denies anxiety or behavioral changes EXAM Physical Exam Const Vital Signs: 11/16/20 08:08 Temperature 97.2 F L Temperature Source Temporal Pulse Rate 60 Respiratory Rate 16 Blood Pressure 147/80 H Blood Pressure Mean 102 Pulse Ox 97 Oxygen Delivery Method Room Air Positive well nourished, well developed and no apparent distress General Appearance ED: well developed HEENT Reports normocephalic, TM's clear and moist mucous membranes HEENT Narrative: Blood noted through the right nares but no active area of bleeding is visualized. No active bleeding noticed in the oropharynx. Patient does expel several large clots from her right nares. atraumatic Nose: no nasal discharge General Ear: hearing grossly impaired External Ear: external ears normal Tympanic Membrane ED: Yes TM's clear Mouth ED: Yes moist mucous membranes abnormal Mouth: moist mucous membranes abnormal Eyes PERRL and EOMs intact bilaterally General Eye ED: Negative for pale conjunctiva Neck full ROM, supple, no meningeal signs and no JVD Chest Wall inspection of chest normal Resp normal respiratory effort and normal air movement Cardio regular rate and regular rhythm GI normal to inspection, nondistended, normoactive bowel sounds Extremity normal to inspection and full ROM Neuro oriented x3 and no focal motor deficits Psych mental status grossly normal and thought process normal Skin no rashes or lesions noted and no wounds MDM MDM MDM Narrative Medical decision making narrative: Patient evaluated for epistaxis. Bleeding is stopped with pressure and Afrin. As patient is on Xarelto has had intermittent bleeding over the past few weeks I did place nasal packing. See procedure note. Patient tolerated this well. Patient ambulated with no difficulties. Started take Tylenol as needed for discomfort. Will follow up with her ENT later this week. As patient has chronic atrial fibrillation I think the risk of stroke outweighs the benefits of holding her blood thinner at this time as the bleeding has stopped. Counseled return precautions. Patient not lightheaded or dizzy and has no vital sign abnormalities concerning for acute blood loss. Procedures Other Procedures Procedure(s): Nasal packing Afrin applied to the right nares and then cotton ball soaked in [place] solution inserted. 5.5 cm nasal packing placed and inflated with approximately 2 cc of air.-The limit of patient's comfort. Patient tolerated procedure well. No further bleeding noted. Discharge Plan Triage Chief Complaint: Nosebleed ED Provider: Anyi Shaikh Dx/Rx/DC Orders Clinical Impression: Acute anterior epistaxis Instructions: ED Epistaxis (Adult) Prescriptions: No Action acetaminophen 325 mg tablet 650 mg PO Q6H PRN (Reason: Pain Or Fever) RF: 0 levothyroxine 100 mcg tablet 100 mcg PO DAILY RF: 0 omeprazole 20 mg capsule,delayed release(DR/EC) 20 mg PO DAILY RF: 0 amiodarone 200 mg tablet 200 mg PO DAILY Qty: 90 RF: 3 amlodipine 5 mg tablet 5 mg PO DAILY Qty: 90 RF: 3 losartan 50 mg tablet 50 mg PO DAILY Qty: 90 RF: 3 Xarelto 20 mg tablet 20 mg PO DAILY Qty: 90 RF: 4 multivitamin with folic acid 1 TABLET tablet 1 tab PO DAILY RF: 0 gabapentin 100 MG capsule 100 mg PO TID PRN PRN (Reason: leg pain) RF: 0 furosemide 20 mg tablet 20 mg PO .// Qty: 90 RF: 2 Primary Care Provider: Truong Naqvi Referrals: Bogdan Verduzco MD [STAFF PHYSICIAN] - Truong Naqvi MD [Primary Care Provider] - Activity Restrictions/Additional Instructions: Please follow-up with ear nose and throat for removal of your packing later this week ( or Sunday) Disposition Disposition: Home, self care
[2020-11-16 10:05] VITALS: BP 133/67; PULSE 67; RESP 18; O2SAT 98
== END 2020-11-16 10:06 | disposition home or self-care (01) ==
PROVIDERS: Emergency Provider Emergency Medicine; PCP Family Medicine
DX: R04.0 Epistaxis (principal); I48.0 Paroxysmal atrial fibrillation; E03.9 Hypothyroidism, unspecified; Z79.02 Long term (current) use of antithrombotics/antiplatelets; Z79.899 Other long term (current) drug therapy
CPT/HCPCS: 30901; 99282

== ENCOUNTER → 2021-03-08 10:52 | Outpatient (CLI) | payer MEDICARE, OTHER, SELFPAY ==
--- NOTE | 2021-03-08 10:54 | BI_ITS ---
MAMMOGRAPHY - BILATERAL SCREENING REASON FOR EXAM: Female, 85 years old. Routine annual screening examination. PERTINENT HISTORY: Non-contributory. TECHNIQUE: Digital bilateral breast heide (3D mammographic acquisition) in the CC and MLO projections. 2-D mediolateral oblique (MLO) and craniocaudad (CC) views of both breasts were obtained. CAD: Full Field Digital Mammography with Computer Added Detection was performed. COMPARISON: Comparison is made with prior study dated 03/02/2020 and 09/13/2018. FINDINGS: Breast Composition: The breasts are heterogeneously dense, which may obscure small masses. There are no dominant masses or suspicious calcifications. No other significant abnormalities are identified. There has been no significant change since the prior study. BI/SCRN MAMM (CAD)W/HEIDE BILAT IMPRESSION: Stable bilateral screening mammogram. Yearly follow-up mammogram recommended. (A) ASSESSMENT CATEGORY: BIRADS Category 1: Negative. A letter regarding these results will be sent to the patient by the facility within 30 days. Approximately 10% of breast cancers are not detected by mammography. A normal mammogram should not delay biopsy of a clinically suspicious abnormality. [id number] Electronically Signed: Vito Duncan MD at 11:47 EDT , Service support ,
== END ==
PROVIDERS: PCP Family Medicine; Referring Provider Family Medicine; Visit Provider Family Medicine
DX: Z12.31 Encounter for screening mammogram for malignant neoplasm of breast (principal)
CPT/HCPCS: 77063; 77067

== ENCOUNTER → 2021-05-16 14:14 | Outpatient (CLI) | payer MEDICARE, OTHER, SELFPAY ==
--- NOTE | 2021-05-16 14:31 | RAD_ITS ---
STUDY: XR Chest 2 Views 05/16/2021 2:33 PM REASON FOR EXAM: Female, 85 years old. CHEST PAIN SOB, Amiodarone COMPARISON: 10/13/2019 TECHNIQUE: XR Chest 2 Views FINDINGS: There is no demonstrated pleural abnormality. Loop recorder noted. Enlarged heart size. Normal mediastinum. Normal jerel. Prominent appearing increased interstitial lung markings. Normal visualized pulmonary arteries. There is atherosclerotic calcification of the aortic arch with tortuosity. There are diffuse degenerative changes of the visualized thoracic spine. There is degenerative osteoarthritis of the bilateral shoulders. There is no demonstrated abnormality of the visualized soft tissue structures of the upper abdomen. RAD/Chest PA and Lateral IMPRESSION: There are no acute findings. Electronically Signed: Parker Pritchett MD at 14:48 EST , Service support ,
[2021-05-16 15:09] LABS: Absolute Lymphocyte Count 1.35 X10^3/uL (0.83-4.51); Absolute Neutrophil Count 4.5 X10^3/uL (2.0-7.7); Basophil# 0.05 X10^3/uL; Basophil% 0.7 % (0-1); Eosinophil# 0.09 X10^3/uL; Eosinophils% 1.3 % (0-5); Hematocrit 47.4 % (37-47); Hemoglobin 15.1 g/dL (12.0-15.0); Lymphocyte # 1.35 X10^3/ul (0.83-4.51); Lymphocyte % 20.2 % (19-41); Mean Corp Hgb Conc 31.9 g/dL (32-36); Mean Corpuscular Hgb 30.3 pg (27.0-32.0); Mean Platelet Vol. 11.5 fl (6.2-12.0); Monocyte# 0.66 X10^3/uL; Monocyte% 9.9 % (0-10); NRBC Flagged by Analyzer 0 % (0-5); Neutrophil % 67.3 % (47-70); Platelet Count 196 K/mm3 (150-450); RBC Distribution Width CV 14.1 % (11.6-14.6); RBC Distribution Width SD 49.4 fl (35.1-43.9); Red Blood Count 4.99 M/mm3 (4.2-5.4); White Blood Count 6.7 K/mm3 (4.4-11.0)
[2021-05-16 15:30] LABS: BNP,B-Type NATRIURETIC PEPTIDE 331.8 pg/mL (0-100)
[2021-05-16 15:40] LABS: ALB/GLOB Ratio 1.2 RATIO (0.9-2.4); AST(SGOT) 34 U/L (15-37); Alanine Aminotransfer ALT/SGPT 38 U/L (13-56); Albumin, Serum 4.1 g/dL (3.2-5.0); Alkaline Phosphatase 94 U/L (45-117); Anion Gap 7 (5-15); BUN 22 mg/dL (7-18); Calcium,Total 9.4 mg/dL (8.5-10.1); Chloride 105 mmol/L (98-107); Creatinine, Serum 1.22 mg/dL (0.55-1.02); EST Glomerular Filtration Rate 44 mL/min (>60); Est Glom Filt Rate - Afr Amer 54 mL/min (>60); Globulin 3.3 g/dL (2.2-4.2); Glucose 105 mg/dL (74-106); Potassium 4.5 mmol/L (3.5-5.1); Protein, Total 7.4 g/dL (6.4-8.2); Sodium Level 140 mmol/L (136-145)
== END ==
PROVIDERS: PCP Family Medicine; Referring Provider Nurse Practitioner Gerontology; Visit Provider Nurse Practitioner Gerontology
DX: R06.00 Dyspnea, unspecified (principal); Z79.899 Other long term (current) drug therapy
CPT/HCPCS: 36415; 71046; 80053; 83880; 85025

== ENCOUNTER → 2021-05-20 08:00 | Outpatient (CLI) | payer MEDICARE, OTHER, SELFPAY ==
--- NOTE | 2021-05-21 10:50 | PFTCOMP_ITS ---
COMPLETE PULMONARY FUNCTION TEST INTERPRETATION Brief HPI: Patient is an 85 year old female, currently under the care of Marie Allison, who presents to [facility] for complete pulmonary function tests secondary to diagnosis of amiodarone therapy. Respiratory therapist reports good effort and reproducible results. Interpretation: Forced expiration spirometry shows no large airways obstructive ventilatory defect with an FEV1 of 141% predicted. There is no significant bronchodilator response by strict ATS criteria. Spirograms are of good quality and plateau normally. The respiratory flow volume loop shows a normal pattern. Lung volumes by body plethysmography show an elevated total lung capacity at 5.49 L, 122% predicted. All other lung volumes are increased symmetrically. Diffusion capacity by carbon monoxide is elevated at 150% predicted. The airway resistance is normal. No previous pulmonary function tests were available for review. Impression: Normal pulmonary function test. High predicted values likely secondary to age. Okay to continue with amiodarone
== END ==
PROVIDERS: PCP Family Medicine; Referring Provider Nurse Practitioner Gerontology; Visit Provider Nurse Practitioner Gerontology
DX: Z79.899 Other long term (current) drug therapy (principal)
CPT/HCPCS: 94060; 94726; 94729

== ENCOUNTER → 2021-11-23 | Outpatient (CLI) | payer MEDICARE, OTHER, SELFPAY ==
[2021-11-23 15:12] LABS: Absolute Lymphocyte Count 1.35 X10^3/uL (0.83-4.51); Absolute Neutrophil Count 3.9 X10^3/uL (2.0-7.7); Basophil# 0.05 X10^3/uL; Basophil% 0.8 % (0-1); Eosinophil# 0.05 X10^3/uL; Eosinophils% 0.8 % (0-5); Hematocrit 48.2 % (37-47); Hemoglobin 15.5 g/dL (12.0-15.0); Lymphocyte # 1.35 X10^3/ul (0.83-4.51); Lymphocyte % 22.6 % (19-41); Mean Corp Hgb Conc 32.2 g/dL (32-36); Mean Corpuscular Hgb 30.6 pg (27.0-32.0); Mean Corpuscular Volume 95.1 fL (81-99); Mean Platelet Vol. 11.7 fl (6.2-12.0); Monocyte# 0.64 X10^3/uL; Monocyte% 10.7 % (0-10); NRBC Flagged by Analyzer 0 % (0-5); Neutrophil # 3.88 X10^3/uL (2.7-7.7); Neutrophil % 64.9 % (47-70); Platelet Count 194 K/mm3 (150-450); RBC Distribution Width CV 13.8 % (11.6-14.6); RBC Distribution Width SD 48.3 fl (35.1-43.9); Red Blood Count 5.07 M/mm3 (4.2-5.4)
[2021-11-23 15:35] LABS: ALB/GLOB Ratio 1.4 RATIO (0.9-2.4); AST(SGOT) 38 U/L (15-37); Alanine Aminotransfer ALT/SGPT 37 U/L (13-56); Albumin, Serum 4.1 g/dL (3.2-5.0); Alkaline Phosphatase 87 U/L (45-117); Anion Gap 4 (5-15); BUN 30 mg/dL (7-18); BUN/Creat Ratio 22.4 RATIO (10-20); Calcium,Total 9.6 mg/dL (8.5-10.1); Chloride 107 mmol/L (98-107); Creatinine, Serum 1.34 mg/dL (0.55-1.02); EST Glomerular Filtration Rate 40 mL/min (>60); Est Glom Filt Rate - Afr Amer 48 mL/min (>60); Glucose 90 mg/dL (74-106); Potassium 4.6 mmol/L (3.5-5.1); Protein, Total 7.1 g/dL (6.4-8.2); Sodium Level 143 mmol/L (136-145); T4 Free Direct 1.27 ng/dL (0.76-1.46); Thyroid Stim Hormone (TSH) 1.71 uIU/mL (0.358-3.74)
[2021-11-23 15:38] LABS: BNP,B-Type NATRIURETIC PEPTIDE 297.3 pg/mL (0-100)
== END | disposition home or self-care (01) ==
PROVIDERS: PCP Family Medicine; Referring Provider Nurse Practitioner Gerontology; Visit Provider Nurse Practitioner Gerontology
DX: R06.00 Dyspnea, unspecified (principal); I50.32 Chronic diastolic (congestive) heart failure; Z79.899 Other long term (current) drug therapy
CPT/HCPCS: 36415; 80053; 83880; 84439; 84443; 85025

== ENCOUNTER → 2021-11-24 | Outpatient (CLI) | payer MEDICARE, OTHER, SELFPAY ==
--- NOTE | 2021-11-24 13:42 | RAD_ITS ---
STUDY: XR Chest 2 Views 11/24/2021 1:48 PM REASON FOR EXAM: Female, 86 years old. CHEST PAIN Dyspnea COMPARISON: 05/16/2021 TECHNIQUE: XR Chest 2 Views FINDINGS: There is no demonstrated pleural abnormality. Loop recorder noted. Normal heart size. Normal mediastinum. Normal jerel. Prominent appearing increased interstitial lung markings. Normal visualized pulmonary arteries. There is atherosclerotic calcification of the aortic arch with tortuosity. There are diffuse degenerative changes of the visualized thoracic spine. There is degenerative osteoarthritis of the bilateral shoulders. There is no demonstrated abnormality of the visualized soft tissue structures of the upper abdomen. RAD/Chest PA and Lateral IMPRESSION: There are no acute findings. Electronically Signed: Parker Pritchett MD at 16:58 EDT ,
== END | disposition home or self-care (01) ==
PROVIDERS: PCP Family Medicine; Visit Provider Nurse Practitioner Gerontology
DX: R06.00 Dyspnea, unspecified (principal); Z79.899 Other long term (current) drug therapy
CPT/HCPCS: 71046

== ENCOUNTER → 2022-04-10 | Outpatient (CLI) | payer MEDICARE, OTHER, SELFPAY ==
--- NOTE | 2022-04-10 12:27 | BI_ITS ---
MAMMOGRAPHY - BILATERAL SCREENING REASON FOR EXAM: Female, 86 years old. Routine annual screening examination. PERTINENT HISTORY: Non-contributory. TECHNIQUE: Digital bilateral breast heide (3D mammographic acquisition) in the CC and MLO projections. 2-D mediolateral oblique (MLO) and craniocaudad (CC) views of both breasts were obtained. CAD: Full Field Digital Mammography with Computer Added Detection was performed. COMPARISON: Comparison is made with prior study dated 03/08/2021 and 03/02/2020. FINDINGS: Breast Composition: The breasts are heterogeneously dense, which may obscure small masses. There are no dominant masses or suspicious calcifications. No other significant abnormalities are identified. There has been no significant change since the prior study. BI/SCRN MAMM (CAD)W/HEIDE BILAT IMPRESSION: Stable bilateral screening mammogram. Yearly follow-up mammogram recommended. (A) ASSESSMENT CATEGORY: BIRADS Category 1: Negative. A letter regarding these results will be sent to the patient by the facility within 30 days. Approximately 10% of breast cancers are not detected by mammography. A normal mammogram should not delay biopsy of a clinically suspicious abnormality. [id number] Electronically Signed: Vito Duncan MD at 13:39 EDT ,
== END | disposition home or self-care (01) ==
LOC: OPBI 12:25
PROVIDERS: PCP Family Medicine; Visit Provider Family Medicine
DX: Z12.31 Encounter for screening mammogram for malignant neoplasm of breast (principal)
CPT/HCPCS: 77063; 77067

== ENCOUNTER → 2022-07-12 | Outpatient (CLI) | payer MEDICARE, OTHER, SELFPAY ==
--- NOTE | 2022-07-12 | LES_PTH ---
PATIENT: KT CARCAMO LOC: [facility] U#:[id number] AGE/SX: 86/F ROOM: RE07/12/[address]: Dr. Solomon Carr MD : 1935 BED: DIS: 07/12/2022 SPEC #: [id number] RECD: 07/12/22 17:15 STATUS: JOSEF CASTRO #: [id number] CHANDNI: 07/12/22 00:[address]: Solomon Carr DEPT: SURGICAL PATHOLOGY RECD BY: Alexis Rader ENTERED: 07/13/22 13:21 SP TYPE: Lesion OTHR DR: Dr. Truong Naqvi MD Tissues: Skin of face, NOS Procedures: Surgery Specimen Level IV HEADER OPERATION: Excision of right cheek skin lesion PRE-OP DIAGNOSIS: Skin lesion right cheek TISSUE SUBMITTED: Right cheek skin lesion MICROSCOPIC DIAGNOSIS Right cheek skin lesion, excisional biopsy: Basal cell carcinoma, completely excised in the planes of sections examined. SJ:rg 07/14/2022 COMMENT Case has been reviewed in consultation with Dr. Ernst who concurs with the above diagnosis. IDC:AM MICROSCOPIC DESCRIPTION Slides are reviewed. GROSS DESCRIPTION Received in fixative is one container labeled with the patient's name and designated right cheek. The specimen consists of an ellipse of light baker excised skin measuring 1.6 x 0.8 x 0.2 cm. The specimen is inked, serially sectioned and totally submitted in one cassette. / AM:charu 07/13/2022 TC:0 CPT: 66827
== END | disposition home or self-care (01) ==
PROVIDERS: PCP Family Medicine; Referring Provider Surgery; Visit Provider Surgery
DX: L98.9 Disorder of the skin and subcutaneous tissue, unspecified (principal)
CPT/HCPCS: 88305

== ENCOUNTER → 2022-07-18 | Outpatient (CLI) | payer MEDICARE, OTHER, SELFPAY ==
--- NOTE | 2022-07-18 14:00 | LES_PTH ---
PATIENT: KT CARCAMO LOC: [facility] U#:[id number] AGE/SX: 86/F ROOM: RE07/18/[address]: Dr. Solomon Carr MD : 1935 BED: DIS: 07/18/2022 SPEC #: [id number] RECD: 07/19/22 07:41 STATUS: JOSEF CASTRO #: [id number] CHANDNI: 07/18/22 14:[address]: Solomon Carr DEPT: SURGICAL PATHOLOGY RECD BY: Thomas Saini ENTERED: 07/19/22 09:16 SP TYPE: Lesion OTHR DR: Dr. Truong Naqvi MD Tissues: Skin of back, NOS Procedures: Surgery Specimen Level IV HEADER OPERATION: Excision right upper back skin lesion PRE-OP DIAGNOSIS: Right upper back skin lesion TISSUE SUBMITTED: Right upper back tissue MICROSCOPIC DIAGNOSIS Skin lesion of upper back, excisional biopsy: Solar lentigo. Cicatrix. Solar elastosis. AM:charu 07/20/2022 MICROSCOPIC DESCRIPTION Slides are reviewed. GROSS DESCRIPTION Received in fixative is one container labeled with the patient's name and designated right upper back tissue. The specimen consists of a baker-white skin ellipse measuring 2.0 x 1.0 x 1.0 cm. The specimen is inked, serially sectioned and submitted entirely in one cassette. / SJ:charu 07/19/2022 TC:5 CPT: 46717
== END | disposition home or self-care (01) ==
LOC: LABSPEC 07-19 09:14
PROVIDERS: PCP Family Medicine; Visit Provider Surgery
DX: L57.8 Other skin changes due to chronic exposure to nonionizing radiation (principal); L90.5 Scar conditions and fibrosis of skin
CPT/HCPCS: 88305

== ENCOUNTER → 2022-09-29 | Outpatient (CLI) | payer MEDICARE, OTHER, SELFPAY ==
[2022-09-29 12:11] LABS: Absolute Lymphocyte Count 0.88 X10^3/uL (0.83-4.51); Absolute Neutrophil Count 2.9 X10^3/uL (2.0-7.7); Basophil# 0.03 X10^3/uL; Basophil% 0.7 % (0-1); Eosinophil# 0.05 X10^3/uL; Eosinophils% 1.1 % (0-5); Hematocrit 46.3 % (37-47); Hemoglobin 15.3 g/dL (12.0-15.0); Lymphocyte # 0.88 X10^3/ul (0.83-4.51); Lymphocyte % 19.2 % (19-41); Mean Corpuscular Hgb 31.2 pg (27.0-32.0); Mean Corpuscular Volume 94.5 fL (81-99); Mean Platelet Vol. 11.2 fl (6.2-12.0); Monocyte# 0.71 X10^3/uL; Monocyte% 15.5 % (0-10); NRBC Flagged by Analyzer 0 % (0-5); Neutrophil % 63.3 % (47-70); Platelet Count 161 K/mm3 (150-450); RBC Distribution Width SD 48.6 fl (35.1-43.9); White Blood Count 4.6 K/mm3 (4.4-11.0)
[2022-09-29 12:35] LABS: ALB/GLOB Ratio 1.3 RATIO (0.9-2.4); AST(SGOT) 32 U/L (15-37); Alanine Aminotransfer ALT/SGPT 31 U/L (13-56); Albumin, Serum 3.9 g/dL (3.2-5.0); Alkaline Phosphatase 81 U/L (45-117); Anion Gap 5 (5-15); BUN 22 mg/dL (7-18); BUN/Creat Ratio 18.8 RATIO (10-20); Calcium,Total 9.3 mg/dL (8.5-10.1); Chloride 109 mmol/L (98-107); Creatinine, Serum 1.17 mg/dL (0.55-1.02); EST Glomerular Filtration Rate 46 mL/min (>60); Est Glom Filt Rate - Afr Amer 56 mL/min (>60); Globulin 2.9 g/dL (2.2-4.2); Glucose 100 mg/dL (74-106); Potassium 4.3 mmol/L (3.5-5.1); Protein, Total 6.8 g/dL (6.4-8.2); Sodium Level 139 mmol/L (136-145); T4 Free Direct 1.49 ng/dL (0.76-1.46); Thyroid Stim Hormone (TSH) 2.52 uIU/mL (0.358-3.74)
== END | disposition home or self-care (01) ==
LOC: BFHLAB 09:03
PROVIDERS: Visit Provider Nurse Practitioner Family
DX: Z00.00 Encounter for general adult medical examination without abnormal findings (principal); E03.9 Hypothyroidism, unspecified; N18.9 Chronic kidney disease, unspecified
CPT/HCPCS: 36415; 80053; 84439; 84443; 85025

== ENCOUNTER 2023-01-08 13:50 | Outpatient (CLI) | payer MEDICARE, OTHER, SELFPAY ==
[2023-01-08 15:06] LABS: Absolute Lymphocyte Count 1.13 X10^3/uL (0.83-4.51); Basophil# 0.05 X10^3/uL; Eosinophil# 0.07 X10^3/uL; Eosinophils% 1.4 % (0-5); Hematocrit 42.8 % (37-47); Hemoglobin 13.5 g/dL (12.0-15.0); Lymphocyte # 1.13 X10^3/ul (0.83-4.51); Lymphocyte % 23.3 % (19-41); Mean Corp Hgb Conc 31.5 g/dL (32-36); Mean Corpuscular Hgb 30.5 pg (27.0-32.0); Mean Corpuscular Volume 96.8 fL (81-99); Mean Platelet Vol. 11.7 fl (6.2-12.0); Monocyte# 0.54 X10^3/uL; Monocyte% 11.2 % (0-10); NRBC Flagged by Analyzer 0 % (0-5); Neutrophil # 3.04 X10^3/uL (2.7-7.7); Neutrophil % 62.9 % (47-70); Platelet Count 194 K/mm3 (150-450); RBC Distribution Width CV 14.2 % (11.6-14.6); Red Blood Count 4.42 M/mm3 (4.2-5.4); White Blood Count 4.8 K/mm3 (4.4-11.0)
[2023-01-08 15:26] LABS: ALB/GLOB Ratio 1.4 RATIO (0.9-2.4); AST(SGOT) 28 U/L (15-37); Alanine Aminotransfer ALT/SGPT 32 U/L (13-56); Albumin, Serum 3.8 g/dL (3.2-5.0); Alkaline Phosphatase 82 U/L (45-117); Anion Gap 5 (5-15); BUN 22 mg/dL (7-18); BUN/Creat Ratio 21.2 RATIO (10-20); Calcium,Total 9.2 mg/dL (8.5-10.1); Chloride 110 mmol/L (98-107); Creatinine, Serum 1.04 mg/dL (0.55-1.02); EST Glomerular Filtration Rate 53 mL/min (>60); Est Glom Filt Rate - Afr Amer 64 mL/min (>60); Globulin 2.8 g/dL (2.2-4.2); Glucose 93 mg/dL (74-106); Potassium 3.6 mmol/L (3.5-5.1); Protein, Total 6.6 g/dL (6.4-8.2); Sodium Level 142 mmol/L (136-145)
== END 2023-01-08 23:59 | disposition home or self-care (01) ==
LOC: BFHLAB 13:51
PROVIDERS: PCP Family Medicine; Referring Provider Family Medicine; Visit Provider Nurse Practitioner Family
DX: R19.7 Diarrhea, unspecified (principal)
CPT/HCPCS: 36415; 80053; 85025

== ENCOUNTER → 2023-01-09 | Outpatient (CLI) | payer MEDICARE, OTHER, SELFPAY | END | disposition home or self-care (01) | PROVIDERS: PCP Nurse Practitioner Family; Referring Provider Nurse Practitioner Family; Visit Provider Nurse Practitioner Family | DX: R19.7 Diarrhea, unspecified (principal) | CPT/HCPCS: 83630; 87177; 87209; 87493 ==

== ENCOUNTER 2023-01-16 18:11 | Emergency (ER) | payer MEDICARE, OTHER, SELFPAY ==
[2023-01-16 18:12] VITALS: BP 153/62; PULSE 64; RESP 18; TEMP 36.3; O2SAT 98; BMI 23.4
--- NOTE | 2023-01-16 18:40 | EDS_ITS ---
HPI HPI - Fall History of Present Illness Chief Complaint: Fall Detail of Chief Complaint: Hit back of head. 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 History of A-fib on Xarelto. Was cutting her grass. Stepped backwards stumbled over the sidewalk fell backwards and hit the back of her head and her right alvarado. No LOC. Denies headache or neck pain. Denies other injuries. She cleaned up her leg. Prior similar symptoms: No Recent Illness/Hospitalization: No PFSH PFS Medical History Acute anterior epistaxis C. 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 Paroxysmal atrial fibrillation Sick sinus syndrome Sinoatrial node dysfunction Skin cancer Skin lesion of back Skin lesion of face Home Medications multivitamin with folic acid 400 mcg tablet 1 tab PO DAILY SUPPLEMENT 10/03/13 [History Last Taken 10/15/19 08:00] gabapentin 100 mg capsule 100 mg PO TID PRN PRN leg pain 07/13/17 [History Last Taken 06/16/19] acetaminophen 325 mg tablet 650 mg PO Q6H PRN Pain Or Fever 06/24/18 [History Last Taken 06/22/19] levothyroxine 100 mcg tablet 100 mcg PO DAILY 04/23/20 [History Last Taken Unknown] omeprazole 20 mg capsule,delayed release 20 mg PO DAILY PRN 08/01/22 [History Last Taken Unknown] vit C 250 mg-vit E 90 mg-zinc 40 mg-copper 1 [id number] capsule (PreserVision AREDS-2) 1 tab PO BID 08/01/22 [History Last Taken Unknown] amiodarone 200 mg tablet 200 mg PO DAILY heart #90 tabs 08/03/22 [Rx Last Taken Unknown] rivaroxaban 20 mg tablet (Xarelto) 20 mg PO DAILY #90 tabs 01/02/23 [Rx Last Taken Unknown] losartan 50 mg tablet 50 mg PO DAILY #90 tabs 01/03/23 [Rx Last Taken Unknown] amlodipine 5 mg tablet 5 mg PO DAILY #90 tabs 01/12/23 [Rx Last Taken Unknown] furosemide 20 mg tablet 20 mg PO DAILY #90 tabs 01/12/23 [Rx Last Taken Unknown] Allergy/AdvReac Type Severity Reaction Status Date / Time ampicillin Allergy Unknown Verified 01/16/23 18:12 Penicillins Allergy Unknown Verified 01/16/23 18:12 scopolamine Allergy Confusion, Verified 01/16/23 18:12 Agitation meperidine HCl [From Demerol] AdvReac Nausea Verified 01/16/23 18:12 vinyl ether AdvReac Rash Verified 01/16/23 18:12 Family History Brother Cancer Mother Kidney disease Surgical History History of cardioversion (06/23/19) History of hysterectomy 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 Diarrhea. Review of Systems ROS Unobtainable: Denies due to encephalopathy Constitutional Constitutional ED: Denies chills or fever(s) Eyes Eyes: Denies blurry vision ENT ENT ED: Denies ear pain Cardiovascular Cardiovascular: Denies chest pain Respiratory/Chest Respiratory/Chest: Denies cough or dyspnea Gastrointestinal Gastrointestinal: Reports diarrhea; Denies abdominal pain Genitourinary Genitourinary ED: Denies dysuria or hematuria Musculoskeletal Musculoskeletal: Denies arthralgias or back pain Integumentary Denies abscess Neurologic Neurologic: Denies headache(s) Psychiatric Psychiatric: Denies anxiety Endocrine Endocrinology: Denies polydipsia Hematologic/Lymphatic Hematologic/Lymphatic: Denies easy bleeding Allergic/Immunologic Allergic/Immunologic ED: Denies mouth swelling EXAM Physical Exam Narrative Exam Narrative: 79-year-old female no acute distress. Vital signs stable afebrile. HEENT exam pupils are reactive light. No facial trauma. Back top of her scalp there is a contusion. No laceration. No blood. Mildly tender. C-spine trachea nontender. Normal range of motion her neck. Back and spine nontender. Lungs clear. Heart regular rate about 60. Chest wall and collarbones nontender. Ribs nontender. Abdomen soft nontender. Pelvic girdle intact. 5 out of 5 tig welder strength. Dorsi plantarflexion intact. Normal range of motion both upper and lower extremities. No shortening or rotation or lower extremities. Abrasion to her right mid lower leg. No active bleeding. No bony deformity. Neurologically she is awake and alert. Answering questions following commands. GCS of 15 Const Vital Signs: 01/16/23 18:12 01/16/23 19:09 Temperature 97.4 F L Temperature Source Temporal Pulse Rate 64 Respiratory Rate 18 Respiratory Effort Normal Non-Labored Respiratory Depth Normal Respiratory Pattern Normal Blood Pressure 153/62 H Blood Pressure Mean 92 Pulse Ox 98 Oxygen Delivery Method Room Air Positive well nourished and well developed; Negative for cachectic, contractures or unkempt General Appearance ED: well developed and NAD; Negative for unkempt, cachectic or contractures Nutritional Appearance: Negative for cachectic HEENT Reports normocephalic trauma, contusion, hematoma and tenderness; Negative for atraumatic Eyes PERRL and EOMs intact bilaterally General Eye ED: Negative for pale conjunctiva Neck full ROM, no lymphadenopathy and supple General: Negative for tenderness Chest Wall inspection of chest normal and palpation of chest normal Resp normal respiratory effort and clear to auscultation bilaterally Effort and Inspection: Negative for pain with movement Auscultation: Negative for rales, rhonchi or wheezes Cardio regular rhythm, S1 normal heart sound, S2 normal heart sound and no murmurs GI non-tender, non-distended and no masses Auscultation: normoactive bowel sounds Palpation: soft; Negative for guarding or rebound tenderness present Back/Spine no CVA tenderness General Back: Negative for CVA tenderness Cervical Spine: Negative for cervical spine tenderness Thoracic Spine / Upper Back: Negative for ROM limited Lumbar Spine / Lower Back: Negative for lumbar spinal tenderness Extremity Extremity Narrative: Moving all 4. Nontender. Abrasion right mid alvarado. No bleeding. No repair needed. Neuro oriented x3, CN's II-XII intact bilaterally, moves all extremities and no focal motor deficits Tyler Coma Scale: document GCS findings Spontaneous Obeys Commands Oriented 15 Sensorium / Orientation: alert, oriented to person, oriented to place and oriented to time; Negative for orientation impaired, confused, lethargic or stuporous Motor Exam: strength 5/5 throughout Psych mental status grossly normal and thought process normal Appearance: Negative for unkempt Attitude: No agitated Mood & Affect: Negative for depressed, anxious or tearful Skin General Skin Exam: Negative for other Rashes: no rashes Trauma: abrasion MDM MDM MDM Narrative Medical decision making narrative: 87-year-old female tripped and fell at home while cutting her grass. Posterior scalp injury. CAT scan to be obtained due to her being on Xarelto. Her neurologic exam currently is normal. She has an abrasion on her right lower alvarado. That will be cleaned and dressed. Does not need to be repaired. Repeat exam patient is doing well. The CAT scan showed no signs of acute in tracranial bleed. We went over her CAT scan results. She will hold her Xarelto tonight and tomorrow. Restart after that. Head injury instructions. Ice to her scalp. History & Record Review Discussion w/independent historian: Patient Radiography Diagnostic Testing: Clinical Impression(s) from Imaging Studies Brain CT 01/16/23 18:40 IMPRESSION: Volume loss with chronic white matter changes. No acute intracranial findings. Electronically Signed: Lele Navarro MD at 19:15 EDT Reading Location ID and State: [facility] / [place] Tel , Service support , Discharge Plan Triage Chief Complaint: Fall Other Complaint: Head Injury Lower Extremity Injury Trauma ED Provider: Jacques Castro Dx/Rx/DC Orders Clinical Impression: Chronic anticoagulation, Head injury, History of atrial fibrillation, Abrasion, Fall Instructions: ED Head Injury (Adult) Prescriptions: No Action acetaminophen 325 mg tablet 650 mg PO Q6H PRN (Reason: Pain Or Fever) levothyroxine 100 mcg tablet 100 mcg PO DAILY omeprazole 20 mg capsule,delayed release(DR/EC) 20 mg PO DAILY PRN PreserVision AREDS-2 250-90-40-1 mg capsule 1 tab PO BID multivitamin with folic acid 1 TABLET tablet 1 tab PO DAILY Patient Comments: multivitamin gabapentin 100 MG capsule 100 mg PO TID PRN PRN (Reason: leg pain) amiodarone 200 mg tablet 200 mg PO DAILY Qty: 90 3RF Xarelto 20 mg tablet 20 mg PO DAILY Qty: 90 3RF Hold Instructions: Nosebleed: hold until 11/22/20 when packing removed losartan 50 mg tablet 50 mg PO DAILY Qty: 90 3RF furosemide 20 mg tablet 20 mg PO DAILY Qty: 90 3RF amlodipine 5 mg tablet 5 mg PO DAILY Qty: 90 3RF Primary Care Provider: Tennille Rosales Referrals: Tennille Rosales, MANAGER [employer] [Primary Care Provider] - 3-5 Days if not improving Activity Restrictions/Additional Instructions: Ice to your scalp. Tylenol for pain. Hold your Xarelto for 2 days. Then may restart normally. Keep the abrasion on your right leg clean and apply antibiotic ointment daily. If you develop severe headache, vomiting or not acting right you need to be evaluated in the ER again. Disposition Disposition: Home, Self Care
--- NOTE | 2023-01-16 18:40 | CT_ITS ---
INDICATION: trauma on blood thinner EXAMINATION: CT BRAIN - CT Head or Brain W/O Contrast Injection TECHNIQUE: Multiple axial images were obtained of the head without intravenous contrast. A radiation dose optimization technique was used for this scan. IV Contrast dosage and agent: None. COMPARISON: None. FINDINGS: BRAIN PARENCHYMA: No intra- or extra-axial hemorrhage. No evidence of acute infarct. No intracranial mass or mass effect. Posterior fossa structures are unremarkable. Volume loss with low attenuation of the periventricular white matter typical of chronic small vessel disease. CSF SPACES: Appropriate for age. No hydrocephalus. Basal cisterns are patent. 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 No discrete lytic or blastic abnormalities. CT/Brain/Head without Contrast IMPRESSION: Volume loss with chronic white matter changes. No acute intracranial findings. Electronically Signed: Lele Navarro MD at 19:15 EDT ,
[2023-01-16 20:44] VITALS: BP 150/79; PULSE 79; RESP 16; O2SAT 97
== END 2023-01-16 20:45 | disposition home or self-care (01) ==
LOC: ED 19:05
PROVIDERS: Emergency Provider Emergency Medicine; PCP Nurse Practitioner Family; Visit Provider Emergency Medicine
DX: S80.811A Abrasion, right lower leg, initial encounter (principal); I50.32 Chronic diastolic (congestive) heart failure; I11.0 Hypertensive heart disease with heart failure; I48.0 Paroxysmal atrial fibrillation; S09.90XA Unspecified injury of head, initial encounter; Z79.01 Long term (current) use of anticoagulants; W01.0XXA Fall on same level from slipping, tripping and stumbling without subsequent striking against object, initial encounter; Y93.H2 Activity, gardening and landscaping; Y92.480 Sidewalk as the place of occurrence of the external cause; Z79.899 Other long term (current) drug therapy
CPT/HCPCS: 70450; 99282

== ENCOUNTER → 2023-02-05 | Outpatient (CLI) | payer MEDICARE, OTHER, SELFPAY ==
[2023-02-05 10:37] LABS: Absolute Lymphocyte Count 0.95 X10^3/uL (0.83-4.51); Basophil# 0.03 X10^3/uL; Basophil% 0.4 % (0-1); Eosinophil# 0.12 X10^3/uL; Eosinophils% 1.8 % (0-5); Hematocrit 48.1 % (37-47); Hemoglobin 15.1 g/dL (12.0-15.0); Lymphocyte # 0.95 X10^3/ul (0.83-4.51); Lymphocyte % 14.2 % (19-41); Mean Corp Hgb Conc 31.4 g/dL (32-36); Mean Corpuscular Hgb 30.6 pg (27.0-32.0); Mean Corpuscular Volume 97.6 fL (81-99); Mean Platelet Vol. 11.6 fl (6.2-12.0); Monocyte# 0.53 X10^3/uL; Monocyte% 7.9 % (0-10); NRBC Flagged by Analyzer 0 % (0-5); Neutrophil % 75.1 % (47-70); Platelet Count 202 K/mm3 (150-450); RBC Distribution Width CV 13.3 % (11.6-14.6); RBC Distribution Width SD 47.8 fl (35.1-43.9); Red Blood Count 4.93 M/mm3 (4.2-5.4); White Blood Count 6.7 K/mm3 (4.4-11.0)
[2023-02-05 11:11] LABS: Anion Gap 4 (5-15); BUN 31 mg/dL (7-18); Calcium,Total 9.2 mg/dL (8.5-10.1); Chloride 108 mmol/L (98-107); Creatinine, Serum 1.35 mg/dL (0.55-1.02); EST Glomerular Filtration Rate 39 mL/min (>60); Est Glom Filt Rate - Afr Amer 48 mL/min (>60); Glucose 116 mg/dL (74-106); Potassium 4.2 mmol/L (3.5-5.1); Sodium Level 140 mmol/L (136-145); Thyroid Stim Hormone (TSH) 2.11 uIU/mL (0.358-3.74)
[2023-02-05 12:44] LABS: BNP,B-Type NATRIURETIC PEPTIDE 419.6 pg/mL (0-100)
== END | disposition home or self-care (01) ==
LOC: LAB 10:04
PROVIDERS: PCP Nurse Practitioner Family; Referring Provider Nurse Practitioner Gerontology; Visit Provider Nurse Practitioner Gerontology
DX: I50.32 Chronic diastolic (congestive) heart failure (principal); R06.00 Dyspnea, unspecified; R53.83 Other fatigue
CPT/HCPCS: 36415; 80048; 83880; 84443; 85025

== ENCOUNTER → 2023-02-13 | Outpatient (CLI) | payer MEDICARE, OTHER, SELFPAY ==
[2023-02-13 11:41] LABS: Anion Gap 6 (5-15); BUN 22 mg/dL (7-18); BUN/Creat Ratio 16.4 RATIO (10-20); Calcium,Total 9.3 mg/dL (8.5-10.1); Chloride 112 mmol/L (98-107); Creatinine, Serum 1.34 mg/dL (0.55-1.02); EST Glomerular Filtration Rate 40 mL/min (>60); Est Glom Filt Rate - Afr Amer 48 mL/min (>60); Glucose 119 mg/dL (74-106); Sodium Level 144 mmol/L (136-145)
== END | disposition home or self-care (01) ==
LOC: LAB 10:55
PROVIDERS: PCP Nurse Practitioner Family; Referring Provider Nurse Practitioner Gerontology; Visit Provider Nurse Practitioner Gerontology
DX: I50.32 Chronic diastolic (congestive) heart failure (principal)
CPT/HCPCS: 36415; 80048

== ENCOUNTER → 2023-02-23 | Outpatient (CLI) | payer MEDICARE, OTHER, SELFPAY ==
--- NOTE | 2023-02-23 09:54 | ECHOD_ITS ---
Reason For Study: Dyspnea/SOB, CHF Procedure This was a 2D Doppler, Color Flow transthoracic echocardiogram. Exam performed in department. Left Ventricle Normal LV size. Left ventricular systolic function is normal. The estimated ejection fraction is 60 %. No regional wall motion abnormalities noted. Right Ventricle Normal RV size. ICD or pacer leads identified within the right ventricle. Normal systolic function. Atria Normal left atrium. Normal right atrium. Mitral Valve Normal mitral valve. Mild (1+) mitral valve insufficiency. Tricuspid Valve Normal tricuspid valve. Mild tricuspid valve insufficiency. Pulmonic Valve Normal pulmonic valve. Great Vessels Normal aortic root. The pulmonary artery is normal size. Normal inferior vena cava. Pericardium/Pleural No pericardial effusion. MMode/2D Measurements & Calculations LVIDd: 4.0 cm IVSd: 1.0 cm Ao root diam: 3.3 cm LVIDs: 2.5 cm LVPWd: 0.86 cm LA dimension: 4.1 cm RVDd: 3.1 cm FS: 36.3 % LAV(MOD-bp): 64.9 ml LVAd ap4: 16.3 cm2 SV(MOD-sp4): 22.7 ml LAV(MOD-bp) Indexed: 40.2 ml/m2 LVLd ap4: 5.5 cm LAV(MOD-sp2): 59.0 ml EDV(MOD-sp4): 39.7 ml LAV(MOD-sp4): 64.6 ml EDV(sp4-el): 40.7 ml LVAs ap4: 10.0 cm2 LVLs ap4: 4.9 cm ESV(MOD-sp4): 17.0 ml ESV(sp4-el): 17.3 ml EF(MOD-sp4): 57.1 % EF(sp4-el): 57.5 % SV(sp4-el): 23.4 ml LA A4 area: 21.9 cm2 RA A4 area: 19.4 cm2 TAPSE: 1.4 cm Time Measurements MV dec time: 0.27 sec Doppler Measurements & Calculations MV E max john: 95.1 cm/sec Lat Peak E' John: 9.8 cm/sec Med Peak E' John: 7.6 cm/sec E/E' lat: 9.7 E/E' med: 12.5 MV V2 max: 92.8 cm/sec MV P1/2t max john: 93.9 cm/sec Ao V2 max: 74.5 cm/sec MV max P.4 mmHg MV P1/2t: 99.2 msec Ao max P.2 mmHg MV V2 mean: 43.4 cm/sec MV dec slope: 277.0 cm/sec2 MV mean P.0 mmHg MV V2 VTI: 25.1 cm MVA(P1/2t): 2.2 cm2 LV V1 max: 59.6 cm/sec MR max john: 495.8 cm/sec PA V2 max: 97.2 cm/sec LV V1 max P.4 mmHg MR max P.3 mmHg PA V2 mean: 67.7 cm/sec TR max john: 218.3 cm/sec TR max P.1 mmHg ECHO/Echo Complete Interpretation Summary Normal LV size. Left ventricular systolic function is normal. Mild tricuspid valve insufficiency. Structurally normal valves. Ordering Physician: Marie Allison Referring Physician: Marie Allison Performed By: Bill Driscoll RCS
== END | disposition home or self-care (01) ==
LOC: CVS 09:53
PROVIDERS: PCP Nurse Practitioner Family; Referring Provider Nurse Practitioner Gerontology; Visit Provider Nurse Practitioner Gerontology
DX: I50.32 Chronic diastolic (congestive) heart failure (principal); R06.00 Dyspnea, unspecified
CPT/HCPCS: 93306

== ENCOUNTER → 2023-05-14 | Outpatient (CLI) | payer MEDICARE, OTHER, SELFPAY ==
--- NOTE | 2023-05-14 09:34 | BI_ITS ---
MAMMOGRAPHY - BILATERAL SCREENING REASON FOR EXAM: Female, 87 years old. Routine annual screening examination. PERTINENT HISTORY: Non-contributory. TECHNIQUE: Digital bilateral breast heide (3D mammographic acquisition) in the CC and MLO projections. 2-D mediolateral oblique (MLO) and craniocaudad (CC) views of both breasts were obtained. CAD: Full Field Digital Mammography with Computer Added Detection was performed. COMPARISON: Comparison is made with prior study dated April 10, 2022 and March 08, 2021. FINDINGS: Breast Composition: The breasts are heterogeneously dense, which may obscure small masses. There are no dominant masses or suspicious calcifications. No other significant abnormalities are identified. There has been no significant change since the prior study. BI/SCRN MAMM (CAD)W/HEIDE BILAT IMPRESSION: Stable bilateral screening mammogram. Yearly follow-up mammogram recommended. (A) ASSESSMENT CATEGORY: BIRADS Category 1: Negative. A letter regarding these results will be sent to the patient by the facility within 30 days. Approximately 10% of breast cancers are not detected by mammography. A normal mammogram should not delay biopsy of a clinically suspicious abnormality. [id number] Electronically Signed: Vito Duncan MD at 10:53 EST ,
== END | disposition home or self-care (01) ==
LOC: OPBI 09:31
PROVIDERS: PCP Nurse Practitioner Family; Referring Provider Nurse Practitioner Family; Visit Provider Nurse Practitioner Family
DX: Z12.31 Encounter for screening mammogram for malignant neoplasm of breast (principal)
CPT/HCPCS: 77063; 77067

== ENCOUNTER → 2023-06-19 | Outpatient (CLI) | payer MEDICARE, OTHER, SELFPAY ==
--- NOTE | 2023-06-19 15:31 | RAD_ITS ---
INDICATION: CHEST HEAVINESS EXAMINATION/TECHNIQUE: X-RAY - XR Chest 2 Views COMPARISON: Prior study dated: 11/24/2021. FINDINGS: LINES/DEVICES: None. LUNGS: No consolidation, edema or effusion. No pneumothorax. MEDIASTINUM AND CARDIOVASCULAR STRUCTURES: Cardiac silhouette not enlarged. Probable loop recording device. Central airways and mediastinal contour are unremarkable. BONES AND SOFT TISSUES: Degenerative changes of the thoracic spine. RAD/Chest PA and Lateral IMPRESSION: No radiographic evidence of acute cardiopulmonary disease. Electronically Signed: Lito Walsh MD at 8:56 EST ,
[2023-06-19 17:07] LABS: Anion Gap 3 (5-15); BUN 32 mg/dL (7-18); Calcium,Total 9.1 mg/dL (8.5-10.1); Chloride 108 mmol/L (98-107); Creatinine, Serum 1.28 mg/dL (0.55-1.02); EST Glomerular Filtration Rate 42 mL/min (>60); Est Glom Filt Rate - Afr Amer 51 mL/min (>60); Glucose 100 mg/dL (74-106); Potassium 4.5 mmol/L (3.5-5.1); Sodium Level 139 mmol/L (136-145)
[2023-06-19 17:08] LABS: BNP,B-Type NATRIURETIC PEPTIDE 240.7 pg/mL (0-100)
== END | disposition home or self-care (01) ==
PROVIDERS: PCP Nurse Practitioner Family; Referring Provider Nurse Practitioner Gerontology; Visit Provider Nurse Practitioner Gerontology
DX: R07.89 Other chest pain (principal); I50.32 Chronic diastolic (congestive) heart failure
CPT/HCPCS: 36415; 71046; 80048; 83880

== ENCOUNTER → 2023-06-22 | Outpatient (CLI) | payer MEDICARE, OTHER, SELFPAY ==
--- OUTSIDE RECORDS SUMMARY | 2023-06-22 08:35 | XMS RPT_ITS | CCD ---
Author Name Unknown Address [address] [place] [address] Organization [facility] Care Team Providers Care [employer]ward[employer] Name Role Phone Alison RIBERA, Wen Hampton Unavailable Unavailable Jodi Valladares Unavailable Wen Rosas RN Unavailable Unavailable Trudy Mojica Unavailable Unavailable Jodi Valladares Unavailable Allergies Allergy Classification Reported Allergen(s) Allergy Type Date of Onset Reaction(s) Facility (5 sources) ampicillin drug allergy 09-29-2013 GI upset [facility] Work Phone: (5 sources) meperidine drug allergy 09-29-2013 GI upset [facility] Work Phone: (5 sources) penicillin drug allergy 09-29-2013 GI upset [facility] Work Phone: (5 sources) VINYL GLOVES drug allergy 09-29-2013 rash [facility] Work Phone: (5 sources) VINYL ETHER drug allergy 09-29-2013 rash [facility] Work Phone: Medications Completed/Discontinued Medications Medication Drug Class(es) Dates Sig (Normalized) Sig (Original) acetaminophen 325 mg oral tablet (5 sources) Start: 09-29-2013 take 1 tablet by mouth every six hours as needed TYLENOL 325 MG TABS 1 tablet by mouth every 6 hours as needed ACETAMINOPHEN [id number] Wen Rosas RN aspirin 81 mg oral tablet (20 sources) Platelet Aggregation Inhibitor, Nonsteroidal Anti-inflammatory Drug Start: 10-09-2013 End: 07-02-2014 take 1 tablet by mouth once daily ASPIRIN 81 MG TABS One tablet by mouth daily ASPIRIN [id number] Helen Veliz RN Problems Active Problems Problem Classification Problem Date Documented Da te Episodic/Chronic Cardiac dysrhythmias (5 sources) Paroxysmal atrial fibrillation; Translations: [Paroxysmal atrial fibrillation] Onset: 10-01-2013 10-01-2013 Chronic Essential hypertension (5 sources) Hypertensive disorder; Translations: [Essential (primary) hypertension] Onset: 12-30-2013 12-30-2013 Chronic Past or Other Problems Problem Classification Problem Date Documented Da te Episodic/Chronic Cardiac dysrhythmias (5 sources) Palpitations; Translations: [Palpitations] Onset: 10-15-2014 10-15-2014 Episodic Malaise and fatigue (5 sources) Fatigue; Translations: [Other fatigue] Onset: 10-15-2014 10-15-2014 Episodic Nonspecific chest pain (5 sources) Chest discomfort; Translations: [Other chest pain] Onset: 10-01-2013 10-01-2013 Episodic Other nutritional; endocrine; and metabolic disorders (5 sources) Body mass index (BMI) 25.0-25.9, adult; Translations: [Body mass index (BMI) 25.0-25.9, adult] Onset: 01-18-2016 01-18-2016 Episodic Results Test Name Value Interpretation Reference Range Facil ity Vital Signs Date Time Vital Sign Value Performing Clinician Melissa araiza 01-16-2017 14:54-0400 BMI (Body Mass Index) 25.35 kg/m2 Jodi [facility] Work Phone: 01-16-2017 14:54-0400 BP Diastolic 60 mm[Hg] [facility] Work Phone: 01-16-2017 14:54-0400 BP Systolic 120 mm[Hg] Jodi Sw[facility] Work Phone: 01-16-2017 14:54-0400 Height 163.83 cm Jodi Swann [facility] Work Phone: 01-16-2017 14:54-0400 Pulse (Heart Rate) 64 /min [facility] Work Phone: 01-16-2017 14:54-0400 Respiratory Rate 20 /min Jodi Swann [facility] Work Phone: 01-16-2017 14:54-0400 Weight 68.04 kg Jodi Valladares [facility] Work Phone: 07-20-2016 14:08-0500 BMI (Body Mass Index) 25.85 kg/m2 Wen Rosas RN [facility] Work Phone: 07-20-2016 14:08-0500 BP Diastolic 50 mm[Hg] Wen Rosas RN [facility] Work Phone: 07-20-2016 14:08-0500 BP Systolic 120 mm[Hg] Wen Rosas RN [facility] Work Phone: 07-20-2016 14:08-0500 BSA (Body Surface Area) 1.76 m2 Wen Rosas RN [facility] Work Phone: 07-20-2016 14:08-0500 Pulse (Heart Rate) 68 /min Wen Rosas RN [facility] Work Phone: 07-20-2016 14:08-0500 Respiratory Rate 20 /min Wen Rosas RN [facility] Work Phone: 07-20-2016 14:08-0500 Weight 69.4 kg Wen Rosas RN [facility] Work Phone: 01-18-2016 09:37-0400 Heart rate 60 /min Wen Rosas RN [facility] Work Phone: 10-01-2013 13:10-0400 Height 163.83 cm Wen Rosas RN [facility] Work Phone: Procedures Date Procedure Procedure Detail Performing Clinician Start: 01-16-2017 End: 01-16-2017 SYLVIA Thayer MD Start: 01-16-2017 End: 01-16-2017 Follow Up Appt 1 year Ant Thayer MD Start: 07-20-2016 End: 07-20-2016 SYLVIA Thayer MD Start: 07-20-2016 End: 07-20-2016 Follow Up Appt 6 months Rocael Haas Start: 01-18-2016 End: 01-18-2016 Dietary management education, guidance, and counseling Wen Rosas RN Start: 01-18-2016 End: 01-18-2016 [employer] TECHN[employer] Lneora Lagunas PA-C Work Phone: Start: 01-18-2016 End: 01-18-2016 Follow Up Appt 6 months Lenora zendejas PA-C Work Phone: Start: 07-13-2015 End: 07-13-2015 Follow Up Appt 6 months Rocael Haas Start: 07-13-2015 End: 07-13-2015 MMM Ant Thayer MD Start: 01-07-2015 End: 01-07-2015 FASTENER TECHNOLOGIST Ant Thayer MD Start: 01-07-2015 End: 01-08-2015 Documentation of current medications Ant Thayer MD Start: 01-07-2015 End: 01-07-2015 Follow Up Appt 6 months Rocael Haas Start: 10-15-2014 End: 10-15-2014 *BMP Ant Thayer MD Start: 10-15-2014 End: 10-15-2014 *CBC with Differential Ant Thayer MD Start: 10-15-2014 End: 10-15-2014 Electrocardiogram, complete Ant Rick i, MD Start: 10-15-2014 End: 10-15-2014 Follow Up BP Check Ant Thayer MD Start: 10-15-2014 End: 10-15-2014 Magnesium Ant Thayer MD Start: 10-15-2014 End: 10-15-2014 Thyroid stimulating hormone (TSH) Ant Thayer MD Start: 10-15-2014 End: 10-15-2014 Thyroxine (T4) Ant Thayer MD Start: 07-02-2014 End: 10-15-2014 *BMP Ant Thayer MD Start: 07-02-2014 End: 10-15-2014 *CBC with Differential Ant Thayer MD Start: 07-02-2014 End: 07-02-2014 FASTENER TECHNOLOGIST Ant Thayer MD Start: 07-02-2014 End: 07-03-2014 Documentation of current medications Ant Thayer MD Start: 07-02-2014 End: 07-02-2014 Follow Up Appt 6 months Rocael Haas Start: 03-19-2014 End: 03-19-2014 Follow Up Appt Other Lenora finn PA-C Work Phone: Start: 12-30-2013 End: 01-01-2014 SYLVIA Lagunas PA-C Work Phone: Start: 12-30-2013 End: 01-01-2014 Follow Up Appt 6 months Lenora zendejas PA-C Work Phone: Start: 10-01-2013 End: 10-02-2013 *BMP Ant Thayer MD Start: 10-01-2013 End: 10-02-2013 CBC W Auto Differential panel - Blood Ant Thayer MD Start: 10-01-2013 End: 10-02-2013 Chest x-ray Ant Thayer MD Start: 10-01-2013 End: 10-02-2013 Coagulation factor induced.INR assay in platelet poor plasma Ant Thayer MD Start: 10-01-2013 End: 10-01-2013 FASTENER TECHNOLOGIST Ant Thayer MD Start: 10-01-2013 End: 10-06-2013 Echocardiography Ant Thayer MD Start: 10-01-2013 End: 10-01-2013 Electrocardiogram, complete Ant Rick i, MD Start: 10-01-2013 End: 10-01-2013 Follow Up Appt 3 months Rocael Haas Start: 10-01-2013 End: 10-08-2013 Left Heart Cath Ant Thayer MD Plan of Treatment Date Care Activity Detail Author Start: 01-17-2018 End: 01-17-2018 Appointment Appointment [facility] Work Phone: Start: 01-16-2017 End: 01-16-2017 Appointment Appointment [facility] Work Phone: Start: 01-16-2017 End: 01-16-2017 FASTENER TECHNOLOGIST FASTENER TECHNOLOGIST [facility] Work Phone: Start: 01-16-2017 End: 01-16-2017 Follow Up Appt 1 year Follow Up Appt 1 year [facility] Work Phone: Start: 07-20-2016 End: 07-20-2016 FASTENER TECHNOLOGIST FASTENER TECHNOLOGIST [facility] Work Phone: Start: 07-20-2016 End: 07-20-2016 Follow Up Appt 6 months Follow Up Appt 6 months [facility] Work Phone: Start: 01-18-2016 End: 01-18-2016 FASTENER TECHNOLOGIST FASTENER TECHNOLOGIST [facility] Work Phone: Start: 01-18-2016 End: 01-18-2016 Follow Up Appt 6 months Follow Up Appt 6 months [facility] Work Phone: Start: 07-13-2015 End: 07-13-2015 Follow Up Appt 6 months Follow Up Appt 6 months [facility] Work Phone: Start: 07-13-2015 End: 07-13-2015 MMM MMM [facility] Work Phone: Start: 01-07-2015 End: 01-07-2015 FASTENER TECHNOLOGIST FASTENER TECHNOLOGIST [facility] Work Phone: Start: 01-07-2015 End: 01-07-2015 Follow Up Appt 6 months Follow Up Appt 6 months [facility] Work Phone: Start: 10-15-2014 End: 10-15-2014 *BMP *BMP [facility] Work Phone: Start: 10-15-2014 End: 10-15-2014 *CBC with Differential *CBC with Differential [facility] Work Phone: Start: 10-15-2014 End: 10-15-2014 Electrocardiogram, complete EKG (In office) [facility] Work Phone: Start: 10-15-2014 End: 10-15-2014 Follow Up BP Check Follow Up BP Check [facility] Work Phone: Start: 10-15-2014 End: 10-15-2014 Magnesium *Magnesium [facility] Work Phone: Start: 10-15-2014 End: 10-15-2014 Thyroid stimulating hormone (TSH) *TSH [facility] Work Phone: Start: 10-15-2014 End: 10-15-2014 Thyroxine (T4) *T4 (Total) [facility] Work Phone: Start: 07-02-2014 End: 10-15-2014 *BMP *BMP [facility] Work Phone: Start: 07-02-2014 End: 10-15-2014 *CBC with Differential *CBC with Differential [facility] Work Phone: Start: 07-02-2014 End: 07-02-2014 FASTENER TECHNOLOGIST FASTENER TECHNOLOGIST [facility] Work Phone: Start: 07-02-2014 End: 07-02-2014 Follow Up Appt 6 months Follow Up Appt 6 months [facility] Work Phone: Start: 03-19-2014 End: 03-19-2014 Follow Up Appt Other Follow Up Appt Other [facility] Work Phone: Start: 12-30-2013 End: 01-01-2014 FASTENER TECHNOLOGIST FASTENER TECHNOLOGIST [facility] Work Phone: Start: 12-30-2013 End: 01-01-2014 Follow Up Appt 6 months Follow Up Appt 6 months [facility] Work Phone: Start: 10-01-2013 End: 10-02-2013 *BMP *BMP [facility] Work Phone: Start: 10-01-2013 End: 10-02-2013 CBC W Auto Differential panel - Blood *CBC without Diff [facility] Work Phone: Start: 10-01-2013 End: 10-02-2013 Chest x-ray X-Ray, Chest, PA & Lateral [facility] Work Phone: Start: 10-01-2013 End: 10-02-2013 Coagulation factor induced.INR assay in platelet poor plasma *PT/INR [facility] Work Phone: Start: 10-01-2013 End: 10-01-2013 FASTENER TECHNOLOGIST FASTENER TECHNOLOGIST [facility] Work Phone: Start: 10-01-2013 End: 10-01-2013 Echocardiography Echocardiogram (complete) [facility] Work Phone: Start: 10-01-2013 End: 10-01-2013 Electrocardiogram, complete EKG (In office) [facility] Work Phone: Start: 10-01-2013 End: 10-01-2013 Follow Up Appt 3 months Follow Up Appt 3 months [facility] Work Phone: Start: 10-01-2013 End: 10-01-2013 Left Heart Cath Left Heart Cath [facility] Work Phone: Clinical Note 04-06-2021 Note Date & Type Note Facility 04-06-2021 Note Patient Outreach (NE TNAV) VEE CARCAMO ([id number]) 1935 F TXT Date Time Provider Department 04/06/21 BHARATH POTTS During your visit today, we recorded the following information about you: Bharath Potts Population Health Navigator 04/06/2021 10:48 AM Signed POPULATION HEALTH NAVIGATION OUTREACH Action/FYI I spoke with patient's daughter and she states mom has already a new pcp No care everywhere Contact made with patient or family member? NO Pt identified by name and : NO Outreach Outcome/Action Spoke to patient or caregiver: PCP confirmed / updated Patient declined Reason for Outreach Attribution: Provider Off-boarding Payer: Payor: MEDICARE / Plan: MEDICARE A AND B / Product Type: Medicare / Care Gap Reviewed:: Reminder: Reminder note to check Health Maintenance for items below Health Maintenance items due: BONE DENSITY Never done COVID-19 VACCINE(3 - Pfizer booster) due on 01/20/2021 INFLUENZA(1) due on 02/09/2021 Advanced Directives Completed: Have you ever planned for future healthcare decisions with a power of commonwealth attorney, living will, or advance directives? No. Please bring a copy to your next appointment or email to Referrals: N/A Message Sent to Practice: NO Navigation Signature: Bharath Potts Population Health Navigator April 06, 2021 10:47 AM Allergies As of Date: 04/06/2021 Noted Allergy Reaction AMPICILLIN 08/08/2011 8 - GI Upset DEMERAL (MEPERIDINE) 08/28/2013 8 - GI Upset Comments: Nausea/vomiting PENICILLINS 11/04/2010 8 - GI Upset VINYL ETHER 04/29/2011 2 - Rash Date Reviewed: 10/11/2020 Reviewed by: Peggy Mclain MA - Fully Assessed Reason for Visit: Population Health Navigation Outreach [[id number]] Cmt: Offboarding Prescriptions as of 04/06/2021 - levothyroxine (SYNTHROID) 100 mcg tablet Take 1 tablet by mouth once daily. Take on empty stomach - gabapentin (NEURONTIN) 100 mg capsule Take 1 capsule by mouth three times daily as needed. - amiodarone (PACERONE) 200 mg tablet TAKE 1 TABLET BY MOUTH TWICE DAILY for 2 (TWO) weeks, then TAKE 1 TABLET BY MOUTH DAILY - furosemide (LASIX) 40 mg tablet Take 40 mg by mouth once daily. - metoprolol succinate ER (TOPROL XL) 25 mg 24 hr tablet Take 25 mg by mouth once daily. - amLODIPine (NORVASC) 5 mg tablet Take 5 mg by mouth once daily. - ondansetron orally disintegrating (ZOFRAN ODT) 4 mg disintegrating tablet Take 1 tablet by mouth every 6 hours as needed for Nausea/Vomiting. - LACTOBACILLUS ACIDOPHILUS (PROBIOTIC ORAL) Take by mouth once daily. - diclofenac sodium (VOLTAREN) 1 % topical gel Apply 4 g to affected area four times daily as needed (for knee pain). - rivaroxaban (XARELTO) 10 mg tablet Take 20 mg by mouth once daily. - losartan (COZAAR) 50 mg tablet Take 100 mg by mouth once daily. - MULTIVIT ANDMINERALS/FERROUS FUM (MULTI VITAMIN ORAL) Take 1 tablet by mouth once daily. - acetaminophen (TYLENOL) 325 mg tablet Take 325 mg by mouth every 6 hours as needed. - Cholecalciferol, Vitamin D3, 1,000 unit tab Take 1 tablet by mouth once daily. - FLAXSEED OIL 1 tsp daily Problem List As Of Date 04/06/2021 Noted Resolved CHANGE OF BOWEL HABITS [R19.8] 04/23/2006 01/28/2016 PRURITIC DISORDER NOS [L29.9] 05/18/2008 EXCORIATION/////SUPERFICIAL INJURY NEC [T07.XXX*05/18/2008 01/28/2016 XEROSIS////SEBACEOUS GLAND DIS NEC [L73.8] 05/18/2008 01/28/2016 Contact dermatitis and other eczema due to othe*06/01/2008 01/28/2016 ATROPHY OF SKIN HANDS/////STRIAE ATROPHICAE [L9*12/21/2008 01/28/2016 OTHER PSORIASIS [L40.8] 12/21/2008 Personal History of Colonic Polyps [Z86.010] 05/01/2009 Vitamin D deficiency [E55.9] 07/14/2010 Skin lesion [L98.9] 08/03/2012 01/28/2016 Arthritis of both knees [M17.0] 08/28/2013 Paroxysmal atrial fibrillation [I48.0] 09/18/2013 Chronic left-sided low back pain with left-side*02/09/2016 Benign hypertension [I10] 07/10/2017 Post-menopause [Z78.0] 07/13/2017 CKD (chronic kidney disease), stage III (HCC) [*08/18/2019 Hypothyroidism, acquired [E03.9] 08/18/2019 Encounter Status:Closed by DELROY POPULATION HEALTH NAVIGATORBHARATH on 04/06/21 [facility] Progress note 04-06-2021 Note Date & Type Note Facility 04-06-2021 Note HNO ID: [id number] Author: Bharath Potts Population Health Navigator Service: ? Author Type: ? Type: Progress Notes Filed: 04/06/2021 10:48 AM Note Text: POPULATION HEALTH NAVIGATION OUTREACH Action/FYI I spoke with patient's daughter and she states mom has already a new pcp No care everywhere Contact made with patient or family member? NO Pt identified by name and : NO Outreach Outcome/Action Spoke to patient or caregiver: PCP confirmed / updated Patient declined Reason for Outreach Attribution: Provider Off-boarding Payer: Payor: MEDICARE / Plan: MEDICARE A AND B / Product Type: Medicare / Care Gap Reviewed:: Reminder: Reminder note to check Health Maintenance for items below Health Maintenance items due: BONE DENSITY Never done COVID-19 VACCINE(3 - Pfizer booster) due on 01/20/2021 INFLUENZA(1) due on 02/09/2021 Advanced Directives Completed: Have you ever planned for future healthcare decisions with a power of commonwealth attorney, living will, or advance directives? No. Please bring a copy to your next appointment or email to Referrals: N/A Message Sent to Practice: NO Navigation Signature: Bharath Potts Population Health Navigator April 06, 2021 10:47 AM [facility] Progress note 10-11-2020 Note Date & Type Note Facility 10-11-2020 Note HNO ID: [id number] Author: Luis Carr III, MD Service: ? Author Type: Physician Type: Progress Notes Filed: 10/11/2020 1:19 PM Note Text: SUBJECTIVE: This is a 84 year old female that is here today for Chronic Medical Conditions. 1. hypothyroidism?tolerating medication well 2. hypertension?tolerating medications well 3. CKD III?stable 4. PAF?on amiodarone and tolerating well 5. constipation since starting levothyroxine 100 mcg daily. 6. independent and helping to supervise debilitated . no chest pain, angina, BATES, cough, abd pain, change in BM, PAST MEDICAL HISTORY Diagnosis Date - Arrhythmia - Arthritis of both knees 08/28/2013 - Benign hypertension 07/10/2017 - Chronic left-sided low back pain with left-sided sciatica 02/09/2016 - CKD (chronic kidney disease), stage III (HCC) 08/18/2019 - Glaucoma - Hypertension - Paroxysmal atrial fibrillation (HCC) 09/18/2013 - Snoring - Unspecified malignant neoplasm of skin, site unspecified 2012 - Vitamin D deficiency 07/14/2010 Current Outpatient Medications on File Prior to Visit Medication Sig - amiodarone (PACERONE) 200 mg tablet TAKE 1 TABLET BY MOUTH TWICE DAILY for 2 (TWO) weeks, then TAKE 1 TABLET BY MOUTH DAILY - furosemide (LASIX) 40 mg tablet Take 40 mg by mouth once daily. - metoprolol succinate ER (TOPROL XL) 25 mg 24 hr tablet Take 25 mg by mouth once daily. - amLODIPine (NORVASC) 5 mg tablet Take 5 mg by mouth once daily. - ondansetron orally disintegrating (ZOFRAN ODT) 4 mg disintegrating tablet Take 1 tablet by mouth every 6 hours as needed for Nausea/Vomiting. - LACTOBACILLUS ACIDOPHILUS (PROBIOTIC ORAL) Take by mouth once daily. - diclofenac sodium (VOLTAREN) 1 % topical gel Apply 4 g to affected area four times daily as needed (for knee pain). - rivaroxaban (XARELTO) 10 mg tablet Take 20 mg by mouth once daily. - losartan (COZAAR) 50 mg tablet Take 100 mg by mouth once daily. - MULTIVIT ANDMINERALS/FERROUS FUM (MULTI VITAMIN ORAL) Take 1 tablet by mouth once daily. - acetaminophen (TYLENOL) 325 mg tablet Take 325 mg by mouth every 6 hours as needed. - Cholecalciferol, Vitamin D3, 1,000 unit tab Take 1 tablet by mouth once daily. - FLAXSEED OIL 1 tsp daily - gabapentin (NEURONTIN) 100 mg capsule Take 1 capsule by mouth three times daily as needed. No current facility-administered medications on file prior to visit. FAMILY HISTORY Problem Relation Age of Onset - None Mother - None Father kidney problems Social History Tobacco Use - Smoking status: Never Smoker - Smokeless tobacco: Never Used Substance Use Topics - Alcohol use: No - Drug use: No BP 138/86 Pulse 61 Resp 16 Wt 63.5 kg (140 lb) . OBJECTIVE: APPEARANCE Well appearing, alert, in no acute distress, well-hydrated, well nourished. NECK Supple, no adenopathy; thyroid symmetric, normal size, no bruits HEART RRR with normal S1 and S2, no murmurs, no gallops, no JVD appreciated LUNG clear to auscultation ABDOMEN bowel sounds normoactive, no bruits, soft, non-tender, non-distended, without organomegaly or palpable masses, no tenderness to palpation lab Results for VEE CARCAMO ( ) as of 10/11/2020 11:32 Ref. Range 10/06/2020 07:42 Sodium Latest Ref Range: 136 - 144 mmol/L 143 Potassium Latest Ref Range: 3.7 - 5.1 mmol/L 4.6 Chloride Latest Ref Range: 97 - 105 mmol/L 107 (H) CO2 Latest Ref Range: 22 - 30 mmol/L 27 BUN Latest Ref Range: 7 - 21 mg/dL 25 (H) Creatinine Latest Ref Range: 0.58 - 0.96 mg/dL 1.12 (H) Glucose Latest Ref Range: 74 - 99 mg/dL 95 Protein, Total Latest Ref Range: 6.3 - 8.0 g/dL 7.1 Calcium Latest Ref Range: 8.5 - 10.2 mg/dL 9.6 Albumin Latest Ref Range: 3.9 - 4.9 g/dL 4.7 Bilirubin, Total Latest Ref Range: 0.2 - 1.3 mg/dL 0.6 Alkaline Phosphatase Latest Ref Range: 34 - 123 U/L 95 ALT Latest Ref Range: 7 - 38 U/L 33 AST Latest Ref Range: 13 - 35 U/L 37 (H) Anion Gap Latest Ref Range: 9 - 18 mmol/L 9 eGFR- Unknown 56 eGFR-All Other Races Latest Units: . 46 Free T4 Latest Ref Range: 0.9 - 1.7 ng/dL 1.9 (H) TSH Latest Ref Range: 0.270 - 4.200 uU/mL 2.700 ASSESSMENT: hypothyroidism-at goal PAF-converted to regular rhythm hypertension- CKD III-stable constipation since starting levothyroxine 100 mcg daily. PLAN: healthy diet and regular exercise same medications start colace or fibercon 1 tablet daily with 8 oz water daily may use sennakot or miralax as needed for resistant constipation return to office 6-12 mos and as needed Luis Carr III, MD Medical Decision Making: Problems: Moderate: 2+ stable chronic illnesses Data: Unique test result(s) reviewed: 3+ Risk: Moderate: Drug management Medical Decision Making Level: 4 - Moderate [facility] Clinical Note 09-28-2020 Note Date & Type Note Facility 09-28-2020 Note Patient Outreach (IN TMMN) VEE CARCAMO ([id number]) 1935 F TXT Date Time Provider Department 09/28/20 LUIS CARR III During your visit today, we recorded the following information about you: Allergies As of Date: 09/28/2020 Noted Allergy Reaction AMPICILLIN 08/08/2011 8 - GI Upset DEMERAL (MEPERIDINE) 08/28/2013 8 - GI Upset Comments: Nausea/vomiting PENICILLINS 11/04/2010 8 - GI Upset VINYL ETHER 04/29/2011 2 - Rash Date Reviewed: 08/14/2020 Reviewed by: Silke Hutchins Ma - Fully Assessed Visit Diagnosis:Medication management [Z79.899] Order(s):MAGNESIUM BLD [SQMG1] Order #: [id number] FUTURE Prescriptions as of 09/28/2020 Sig: LEVOTHYROXINE 100 MCG TABLET Take 1 tablet by mouth once d* AMIODARONE 200 MG TABLET TAKE 1 TABLET BY MOUTH TWICE * FUROSEMIDE 40 MG TABLET Take 40 mg by mouth once katharine* METOPROLOL SUCCINATE ER 25 MG* Take 25 mg by mouth once katharine* AMLODIPINE 5 MG TABLET Take 5 mg by mouth once daily. ONDANSETRON 4 MG DISINTEGRATI* Take 1 tablet by mouth every * PROBIOTIC ORAL Take by mouth once daily. DICLOFENAC 1 % TOPICAL GEL Apply 4 g to affected area fo* RIVAROXABAN 10 MG TABLET Take 20 mg by mouth once katharine* LOSARTAN 50 MG TABLET Take 100 mg by mouth once anum* MULTI VITAMIN ORAL Take 1 tablet by mouth once d* ACETAMINOPHEN 325 MG TABLET Take 325 mg by mouth every 6 * CHOLECALCIFEROL (VITAMIN D3) * Take 1 tablet by mouth once d* FLAXSEED OIL 1 tsp daily Problem List As Of Date 09/28/2020 Noted Resolved CHANGE OF BOWEL HABITS [R19.8] 04/23/2006 01/28/2016 PRURITIC DISORDER NOS [L29.9] 05/18/2008 EXCORIATION/////SUPERFICIAL INJURY NEC [T07.XXX*05/18/2008 01/28/2016 XEROSIS////SEBACEOUS GLAND DIS NEC [L73.8] 05/18/2008 01/28/2016 Contact dermatitis and other eczema due to othe*06/01/2008 01/28/2016 ATROPHY OF SKIN HANDS/////STRIAE ATROPHICAE [L9*12/21/2008 01/28/2016 OTHER PSORIASIS [L40.8] 12/21/2008 Personal History of Colonic Polyps [Z86.010] 05/01/2009 Vitamin D deficiency [E55.9] 07/14/2010 Skin lesion [L98.9] 08/03/2012 01/28/2016 Arthritis of both knees [M17.0] 08/28/2013 Paroxysmal atrial fibrillation [I48.0] 09/18/2013 Chronic left-sided low back pain with left-side*02/09/2016 Benign hypertension [I10] 07/10/2017 Post-menopause [Z78.0] 07/13/2017 CKD (chronic kidney disease), stage III (HCC) [*08/18/2019 Hypothyroidism, acquired [E03.9] 08/18/2019 Encounter Status:Closed by EPIC, PRODUSER on 10/01/20 [facility] Progress note 08-14-2020 Note Date & Type Note Facility 08-14-2020 Note HNO ID: [id number] Author: Seth Holder) [place] Service: ? Author Type: Nurse Practitioner Type: Progress Notes Filed: 08/14/2020 9:12 AM Note Text: This note was created using [employer]. Subjective Vee Carcamo is a 84 year old female. HPI Patient is a healthy nontoxic-appearing 84-year-old female with past medical history of paroxysmal atrial fibrillation, hypertension, chronic kidney disease, hypothyroidism, vitamin D deficiency presents to the office today with complaint of left ear pain, left tooth discomfort and a sore throat. Patient states she started noticing a sore throat and left-sided dental discomfort yesterday. Patient states she was recently seen and evaluated by her dentist where x-rays were obtained that were unremarkable. Patient states she has had frequent ear infections concerned she could be experiencing this. Patient states she took 2 doses of clindamycin as she thought this would help. Patient denies any improvement in symptoms. Patient denies any injuries trauma or falls. Patient denies any headache pain, visual disturbances, neck pain, chest pain, shortness of breath difficulty breathing. Patient denies any abdominal pain, nausea or vomiting. Patient denies any fever, shaking, or chills. Review of Systems Constitutional: Negative. HENT: Positive for ear pain and sore throat. Negative for congestion, ear discharge, mouth sores, sinus pressure and sinus pain. Respiratory: Negative. Cardiovascular: Negative. Gastrointestinal: Negative. Musculoskeletal: Negative. Skin: Negative. Neurological: Negative. Objective BP 122/76 Pulse 84 Temp 36.5 ?C (97.7 ?F) (Tympanic) Resp 16 Wt 64.9 kg (143 lb) SpO2 95% Physical Exam Vitals and nursing note reviewed. Constitutional: General: She is not in acute distress. Appearance: Normal appearance. She is not ill-appearing, toxic-appearing or diaphoretic. HENT: Head: Normocephalic. Right Ear: Tympanic membrane, ear canal and external ear normal. Left Ear: Tympanic membrane, ear canal and external ear normal. Nose: Nose normal. No congestion. Mouth/Throat: Mouth: Mucous membranes are moist. Pharynx: Posterior oropharyngeal erythema present. No oropharyngeal exudate. Eyes: Pupils: Pupils are equal, round, and reactive to light. Cardiovascular: Rate and Rhythm: Normal rate and regular rhythm. Pulses: Normal pulses. Heart sounds: Normal heart sounds. No murmur. No friction rub. No gallop. Pulmonary: Effort: Pulmonary effort is normal. No respiratory distress. Breath sounds: Normal breath sounds. No stridor. No wheezing, rhonchi or rales. Chest: Chest wall: No tenderness. Musculoskeletal: General: Normal range of motion. Cervical back: Normal range of motion and neck supple. Skin: General: Skin is warm and dry. Capillary Refill: Capillary refill takes less than 2 seconds. Neurological: General: No focal deficit present. Mental Status: She is alert and oriented to person, place, and time. Assessment and Plan Given patient's complaint and presentation rapid strep test was ordered. Left TM is normal with no hemotympanum or effusion. Right TM reveals chronic perforation without any erythema to the canal or TM. Teeth are intact without any chips cracks or breaks. The gumline has no fluctuance or abscess noted. Back of the throat has minimal erythema without exudates identified, tonsils are nonvisualized, uvula is midline, no stridor or wheezing auscultated over the neck, have low suspicion for peritonsillar abscess, epiglottitis, Ludwigs angina, dental abscess. Rapid strep test was negative and I do suspect patient is experiencing viral URI. Patient educated by proper use of antibiotics and was educated to stop clindamycin. Patient states he does have a history of C. difficile however denies any diarrhea today and patient was given education about increased risk for C. difficile with clindamycin use it was educated to monitor symptoms. Patient otherwise encouraged follow-up with primary care provider as needed. Patient educated symptoms become worse go to emergency room for further evaluation. Patient is agreeable with this plan discharged home in stable condition. Seth Lindsay APRN.GLOBAL SUPPLY CHAIN DIRECTOR [facility] Summary Purpose Family History No Family History Records Found Advance Directives No Advanced Directives Records Found Additional Source Comments INFORMATION SOURCE (unrecogn ized section and content) FOR RECORDS PERTAINING TO PATIENTS WHO ARE OR HAVE BEEN ENROLLED IN A CHEMICAL DEPENDENCY/SUBSTANCEABUSE PROGRAM, SOME INFORMATION MAY BE OMITTED. This clinical summary was aggregated from multiple sources. Caution should be exercised in using it in the provision of clinical care. This summary normalizes information from multiple sources, and as a consequence, information in this document may materially change the coding, format and clinical context of patient data. In addition, data may be omitted in some cases. CLINICAL DECISIONS SHOULD BE BASED ON THE PRIMARY CLINICAL RECORDS. [facility] [employer] software, [facility]. provides no warranty or guarantee of the accuracy or completeness of information in this document.
[2023-06-22 08:43] LABS: AST(SGOT) 21 U/L (15-37); Alanine Aminotransfer ALT/SGPT 28 U/L (13-56); Albumin, Serum 4.3 g/dL (3.2-5.0); Alkaline Phosphatase 80 U/L (45-117); Anion Gap 4 (5-15); BUN 28 mg/dL (7-18); BUN/Creat Ratio 21.9 RATIO (10-20); Bilirubin, Direct 0.17 mg/dL (0.00-0.30); Calcium,Total 9.7 mg/dL (8.5-10.1); Chloride 106 mmol/L (98-107); Cholesterol 229 mg/dL (200); Creatinine, Serum 1.28 mg/dL (0.55-1.02); EST Glomerular Filtration Rate 42 mL/min (>60); Est Glom Filt Rate - Afr Amer 51 mL/min (>60); Glucose 100 mg/dL (74-106); High Density Lipoprotein 88 mg/dL; Potassium 4.5 mmol/L (3.5-5.1); Protein, Total 7.3 g/dL (6.4-8.2); Sodium Level 141 mmol/L (136-145); Triglycerides 80 mg/dL; Very Low Density Lipoprotein 16 mg/dL (5-40)
== END | disposition home or self-care (01) ==
LOC: LAB 08:04
PROVIDERS: PCP Nurse Practitioner Family; Referring Provider Nurse Practitioner Gerontology; Visit Provider Nurse Practitioner Gerontology
DX: I50.32 Chronic diastolic (congestive) heart failure (principal); Z79.899 Other long term (current) drug therapy
CPT/HCPCS: 36415; 80048; 80061; 80076

== ENCOUNTER → 2023-09-10 | Outpatient (CLI) | payer MEDICARE, OTHER, SELFPAY ==
--- NOTE | 2023-09-10 14:35 | RAD_ITS ---
STUDY: X-RAY CHEST REASON FOR EXAM: Female, 87 years old. Dyspnea on exertion. TECHNIQUE: Frontal and lateral views of the chest. COMPARISON: 06/19/2023 FINDINGS: Stable cardiomegaly, loop recorder, aortic tortuosity with calcification, prominent central pulmonary arteries, mild hyperinflation, thoracolumbar scoliosis with osteopenia and diffuse mild spondylosis and no acute or active cardiopulmonary disease. No abnormality of the visualized soft tissue structures of the upper abdomen. RAD/Chest PA and Lateral IMPRESSION: Stable chest with no acute or active cardiopulmonary disease. Electronically Signed: Andres Espinoza MD at 15:13 EDT ,
[2023-09-10 16:01] LABS: Absolute Lymphocyte Count 1.46 X10^3/uL (0.83-4.51); Absolute Neutrophil Count 5.7 X10^3/uL (2.0-7.7); Basophil# 0.01 X10^3/uL; Basophil% 0.1 % (0-1); Eosinophil# 0.01 X10^3/uL; Eosinophils% 0.1 % (0-5); Hematocrit 49.4 % (37-47); Hemoglobin 16.1 g/dL (12.0-15.0); Lymphocyte # 1.46 X10^3/ul (0.83-4.51); Lymphocyte % 17.9 % (19-41); Mean Corp Hgb Conc 32.6 g/dL (32-36); Mean Corpuscular Hgb 30.3 pg (27.0-32.0); Mean Platelet Vol. 11.1 fl (6.2-12.0); Monocyte# 0.89 X10^3/uL; Monocyte% 10.9 % (0-10); NRBC Flagged by Analyzer 0 % (0-5); Neutrophil % 70.1 % (47-70); Platelet Count 255 K/mm3 (150-450); RBC Distribution Width CV 13.7 % (11.6-14.6); RBC Distribution Width SD 46.9 fl (35.1-43.9); Red Blood Count 5.31 M/mm3 (4.2-5.4); White Blood Count 8.1 K/mm3 (4.4-11.0)
[2023-09-10 16:26] LABS: BNP,B-Type NATRIURETIC PEPTIDE 278.8 pg/mL (0-100)
[2023-09-10 16:34] LABS: Anion Gap 6 (5-15); BUN 32 mg/dL (7-18); BUN/Creat Ratio 24.6 RATIO (10-20); Calcium,Total 9.1 mg/dL (8.5-10.1); Chloride 109 mmol/L (98-107); EST Glomerular Filtration Rate 41 mL/min (>60); Est Glom Filt Rate - Afr Amer 50 mL/min (>60); Glucose 111 mg/dL (74-106); Potassium 3.9 mmol/L (3.5-5.1); Sodium Level 142 mmol/L (136-145); Thyroid Stim Hormone (TSH) 1.32 uIU/mL (0.358-3.74)
== END | disposition home or self-care (01) ==
LOC: RAD 14:31
PROVIDERS: PCP Nurse Practitioner Family; Referring Provider Nurse Practitioner Gerontology; Visit Provider Nurse Practitioner Gerontology
DX: R07.89 Other chest pain (principal); R06.00 Dyspnea, unspecified
CPT/HCPCS: 36415; 71046; 80048; 83880; 84443; 85025

== ENCOUNTER → 2023-09-12 | Outpatient (CLI) | payer MEDICARE, OTHER, SELFPAY ==
--- NOTE | 2023-09-12 | LES_PTH ---
PATIENT: KT CARCAMO LOC: [facility] U#:[id number] AGE/SX: 87/F ROOM: RE09/12/[address]: Dr. Solomon Carr MD : [id number] BED: DIS: 09/12/2023 SPEC #: [id number] RECD: 09/12/23 15:27 STATUS: JOSEF LIEBERMANRosales #: [id number] CHANDNI: 09/12/23 00:[address]: Solomon Carr DEPT: SURGICAL PATHOLOGY RECD BY: Alexis Rader ENTERED: 09/13/23 10:01 SP TYPE: Lesion OTHR DR: Tennille Rosales, BOOSTER PUMP OPERATOR-C Tissues: Skin of head, NOS Procedures: Surgery Specimen Level IV HEADER OPERATION: Excision of skin lesion right episcopalian PRE-OP DIAGNOSIS: Right episcopalian skin lesion TISSUE SUBMITTED: Right episcopalian skin lesion- suture traylor inferior as part of vertical excision MICROSCOPIC DIAGNOSIS Right episcopalian skin lesion, excision biopsy: Basal cell carcinoma completely excised. Solar elastosis. / 09/14/23 MICROSCOPIC DESCRIPTION Slides are reviewed. GROSS DESCRIPTION Received in fixative is one container labeled with the patient's name and designated Right episcopalian lesion. The specimen consists of a piece of baker-white skin ellipse measuring 2.0 x 0.7cm and up to 0.3cm in thickness. The specimen is oriented as follows: Suture traylor inferior as part the specimen. The specimen is inked as follows: Superior tip- yellow, Inferior tip- green, Presumed medial margin-black, Presumed lateral margin- blue. The specimen is serially sectioned and submitted entirely in one cassette. IKE/ 09/13/2023 TC:0 CPT: 30547
== END | disposition home or self-care (01) ==
LOC: LABSPEC 15:37
PROVIDERS: PCP Nurse Practitioner Family; Referring Provider Surgery; Visit Provider Surgery
DX: L98.9 Disorder of the skin and subcutaneous tissue, unspecified (principal)
CPT/HCPCS: 88305

== ENCOUNTER → 2023-09-17 | Outpatient (CLI) | payer MEDICARE, OTHER, SELFPAY ==
[2023-09-17 09:40] LABS: Anion Gap 9 (5-15); BUN 32 mg/dL (7-18); BUN/Creat Ratio 23.9 RATIO (10-20); Calcium,Total 9.5 mg/dL (8.5-10.1); Chloride 104 mmol/L (98-107); Creatinine, Serum 1.34 mg/dL (0.55-1.02); EST Glomerular Filtration Rate 40 mL/min (>60); Est Glom Filt Rate - Afr Amer 48 mL/min (>60); Glucose 81 mg/dL (74-106); Potassium 4.5 mmol/L (3.5-5.1); Sodium Level 140 mmol/L (136-145)
== END | disposition home or self-care (01) ==
LOC: LAB 08:17
PROVIDERS: PCP Nurse Practitioner Family; Referring Provider Nurse Practitioner Gerontology; Visit Provider Nurse Practitioner Gerontology
DX: I50.32 Chronic diastolic (congestive) heart failure (principal)
CPT/HCPCS: 36415; 80048

== ENCOUNTER 2023-10-09 07:11 | Emergency (ER) | payer MEDICARE, OTHER, SELFPAY ==
[2023-10-09 07:12] VITALS: BP 144/105; PULSE 102; RESP 16; TEMP 36.2; O2SAT 99; BMI 24.5
--- NOTE | 2023-10-09 07:37 | EX.ED.DYSGE1 ---
HPI History of Present Illness Chief Complaint: Palpitations Informant: patient Onset/Context/Timing Onset: Days (3) Context: Gradual Onset Timing: Intermittent Quality: Tightness Location: Chest Worsened by: Nothing Relieved by: Nothing Narrative Narrative: Patient presents with palpitations that have been intermittent over the last 3 days. Patient states she feels like her heart was racing. Patient states she checked her pulse and it was 104 at home. Patient states she has been doing a lot of packing and moving recently. Patient states she was having some tightness in her chest. Patient states that she had some of her medications adjusted recently. Patient states she has felt some pain in her back that she thinks that is from moving. [facility] Medical History Acute anterior epistaxis C. difficile colitis Chronic diastolic (congestive) heart failure Dyspnea on exertion E coli infection Essential (primary) hypertension Hemorrhoid Hypothyroidism Junctional bradycardia terminal superintendent current use of amiodarone Paroxysmal atrial fibrillation Sick sinus syndrome Sinoatrial node dysfunction Skin cancer Skin lesion of back Skin lesion of face Home Medications gabapentin 100 mg capsule 100 mg PO TID PRN PRN leg pain 07/13/17 [History Last Taken 06/16/19] acetaminophen 325 mg tablet 650 mg PO Q6H PRN Pain Or Fever 06/24/18 [History Last Taken 06/22/19] levothyroxine 100 mcg tablet 100 mcg PO DAILY 04/23/20 [History Last Taken Unknown] omeprazole 20 mg capsule,delayed release 20 mg PO DAILY PRN 08/01/22 [History Last Taken Unknown] vit C 250 mg-vit E 90 mg-zinc 40 mg-copper 1 us-[id number]-qfliaj capsule (PreserVision AREDS-2) 1 tab PO BID 08/01/22 [History Last Taken Unknown] rivaroxaban 20 mg tablet (Xarelto) 20 mg PO DAILY #90 tabs 01/02/23 [Rx Last Taken Unknown] amlodipine 5 mg tablet 5 mg PO DAILY #90 tabs 01/12/23 [Rx Last Taken Unknown] tramadol 50 mg tablet 50 mg PO BID PRN 06/19/23 [History Last Taken Unknown] tramadol 25 mg tablet 25 mg PO Q6H PRN 09/10/23 [History Last Taken Unknown] furosemide 20 mg tablet 40 mg (2 x 20 mg) PO DAILY #90 tabs 04/02/24 [Rx Last Taken Unknown] amiodarone 200 mg tablet 100 mg (1/2 x 200 mg) PO DAILY heart #90 tabs 09/12/23 [Rx Last Taken Unknown] losartan 25 mg tablet 25 mg PO DAILY Dose just decreased today #90 tabs 10/02/23 [Rx Last Taken Unknown] Allergy/AdvReac Type Severity Reaction Status Date / Time ampicillin Allergy Unknown Verified 10/09/23 07:14 Penicillins Allergy Unknown Verified 10/09/23 07:14 scopolamine Allergy Confusion, Verified 10/09/23 07:14 Agitation meperidine HCl [From Demerol] AdvReac Nausea Verified 10/09/23 07:14 vinyl ether AdvReac Rash Verified 10/09/23 07:14 Family History Brother Cancer Mother Kidney disease Surgical History History of cardioversion (06/23/19) History of excision of lesion History of hysterectomy 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) History of right hip replacement History of total right knee replacement Social History Smoking Status: Never smoker alcohol intake: current alcohol intake frequency: holidays/special occasions only Alcohol type: wine caffeine: Yes Type: coffee Number of servings: 1 ROS ROS ED Constitutional Constitutional ED: Denies chills or fever(s) Eyes Eyes: Reports blurry vision; Denies change in vision ENT ENT ED: Denies rhinorrhea or sore throat Cardiovascular Cardiovascular: Reports chest pain and palpitations Respiratory/Chest Respiratory/Chest: Reports dyspnea; Denies cough Gastrointestinal Gastrointestinal: Denies nausea or vomiting Genitourinary Genitourinary ED: Denies dysuria or hematuria Musculoskeletal Musculoskeletal: Reports back pain; Denies neck pain Integumentary Denies abscess or rash Neurologic Neurologic: Reports headache(s); Denies weakness Allergic/Immunologic Allergic/Immunologic ED: Denies mouth swelling or urticaria EXAM Physical Exam Const Vital Signs: 10/09/23 07:12 10/09/23 07:24 10/09/23 08:12 Temperature 97.2 F L Temperature Source Oral Pulse Rate 102 H 99 Respiratory Rate 16 Respiratory Effort Normal Non-Labored Blood Pressure 144/105 H Blood Pressure Mean 118 Pulse Ox 99 96 Oxygen Delivery Method Room Air 10/09/23 08:27 10/09/23 08:33 10/09/23 10:31 Temperature Temperature Source Pulse Rate 97 Respiratory Rate 16 Respiratory Effort Blood Pressure 137/87 H 138/92 H Blood Pressure Mean 103 107 Pulse Ox 100 Oxygen Delivery Method Room Air Room Air 10/09/23 11:07 Temperature Temperature Source Pulse Rate 99 Respiratory Rate 16 Respiratory Effort Blood Pressure 140/95 H Blood Pressure Mean 110 Pulse Ox 98 Oxygen Delivery Method Room Air Positive well nourished and well developed General Appearance ED: well developed and NAD HEENT Reports moist mucous membranes Neck supple and no JVD Resp normal respiratory effort and clear to auscultation bilaterally Cardio regular rate and regular rhythm GI non-tender and non-distended Palpation: soft Neuro oriented x3, CN's II-XII intact bilaterally and no sensory deficits noted Sensorium / Orientation: alert Motor Exam: strength 5/5 throughout Psych mental status grossly normal MDM MDM MDM Narrative Medical decision making narrative: Differential diagnosis includes cardiac dysrhythmia, cardiac ischemia, electrolyte abnormality, acute kidney injury, congestive heart failure, pulmonary embolism, musculoskeletal pain, and anxiety. EKG will be obtained to assess for cardiac dysrhythmia and cardiac ischemia. Chest x-ray will be obtained to assess for pneumonia and congestive heart failure. CBC will be obtained to assess for leukocytosis and anemia. Basic metabolic profile will be obtained to assess for electrolyte abnormality and renal function. Magnesium will be obtained to assess for hypomagnesemia. High-sensitivity troponin will be obtained to assess for cardiac ischemia. 2-hour repeat high-sensitivity troponin will be obtained to assess for ongoing cardiac ischemia. D-dimer will be obtained to assess for pulmonary embolism. BNP will be obtained to assess for congestive heart failure. Lab Data Attestation: I reviewed the patient's lab results. Lab results narrative: CBC was reviewed and was within normal limits. Basic metabolic profile was reviewed and was within normal limits. D-dimer was reviewed and was normal at 0.44. Magnesium was reviewed and was normal at 2.2. BNP was reviewed and was normal at 93.2. High-sensitivity troponin was reviewed and was normal at 34. 2-hour repeat high-sensitivity troponin was reviewed and was normal at 28. Labs: Laboratory Results - last 24 hr 10/09/23 10/09/23 08:33 10:55 WBC 5.2 RBC 4.76 Hgb 14.3 Hct 44.3 MCV 93.1 MCH 30.0 MCHC 32.3 RDW Std Deviation 45.4 H RDW Coeff of Shelly 13.2 Plt Count 183 MPV 11.1 Immature Gran % (Auto) 0.400 Neut % (Auto) 62.3 Lymph % (Auto) 22.4 Blount % (Auto) 12.9 H Eos % (Auto) 1.4 Baso % (Auto) 0.6 Absolute Neuts (auto) 3.2 Absolute Lymphs (auto) 1.16 Nucleated RBC % 0 D-Dimer Quant (PE/DVT) 0.44 Sodium 141 Potassium 3.8 Chloride 109 H Carbon Dioxide 29.0 Anion Gap 3 L BUN 23 H Creatinine 1.14 H Estim Creat Clear Calc 28.15 Est GFR (MDRD) Af Amer 58 L Est GFR (MDRD) Non-Af 48 L BUN/Creatinine Ratio 20.2 H Glucose 95 Calcium 9.2 Magnesium 2.2 Troponin I High Sens 34 28 B-Natriuretic Peptide 93.2 Radiography Chest X-Ray - ED: 2 View, Read by ED Physician, Read by Radiologist and No Acute Disease Diagnostic Testing: Clinical Impression(s) from Imaging Studies Chest X-Ray 10/09/23 08:45 IMPRESSION: Stable examination. No acute abnormality is seen. Electronically Signed: Vito Duncan MD at 8:59 EDT , PA and lateral chest x-ray was obtained. There are 2 views. On my independent interpretation, lung graham are clear. There is normal cardiac silhouette. Bony thorax is normal. There is no acute process noted. Radiologist also interpreted the x-ray and agrees. EKG Initial EKG: Attestation: I personally reviewed and interpreted this EKG as follows: Interpretation: Sinus Tachycardia (101) Comments: EKG was obtained. On my independent interpretation, it shows sinus tachycardia with a first-degree AV block with a rate of 101. IA interval was slightly prolonged at 210 ms. QRS and was normal at 96 ms. QTc interval was slightly prolonged at 500 ms. There are T wave inversions in leads V1, V2, and V3. There is evidence of incomplete right bundle branch block. Compared to EKG dated 10/16/2019, the T wave inversion in V1 and V2 is new. There are other EKGs that are more recent but show a paced rhythm with a left bundle branch block. Prior EKG tracings: available for review Prior: Changed Management Discussion w/another healthcare provider: Paleology Teacher Treatment and Re-Evaluation :: Patient is feeling better on reevaluation. Patient's heart rate remained in the upper 90s during her emergency department stay. Her rhythm remained in a sinus rhythm. Patient's blood pressure remained borderline at 140/95. Patient and daughter were advised of the findings. Daughter requested adding on a TSH. This was ordered. Case was discussed with Dr. Jennings. He recommended having the patient follow-up this week. He did not want to make any medication adjustments at this time. Patient and daughter were advised of this. Patient was instructed to schedule a follow-up appointment this week. Patient and daughter understood and were agreeable with the plan. All questions were answered. Discharge Plan Triage Chief Complaint: Palpitations ED Provider: Seth Krishnamurthy Dx/Rx/DC Orders Clinical Impression: Heart palpitations, Essential (primary) hypertension Instructions: ED Palpitations Prescriptions: No Action acetaminophen 325 mg tablet 650 mg PO Q6H PRN (Reason: Pain Or Fever) levothyroxine 100 mcg tablet 100 mcg PO DAILY omeprazole 20 mg capsule,delayed release(DR/EC) 20 mg PO DAILY PRN PreserVision AREDS-2 250-90-40-1 mg capsule 1 tab PO BID tramadol 50 mg tablet 50 mg PO BID PRN tramadol 25 mg tablet 25 mg PO Q6H PRN gabapentin 100 MG capsule 100 mg PO TID PRN PRN (Reason: leg pain) Xarelto 20 mg tablet 20 mg PO DAILY Qty: 90 3RF Hold Instructions: Nosebleed: hold until 11/22/20 when packing removed amlodipine 5 mg tablet 5 mg PO DAILY Qty: 90 3RF Hold Instructions: low BP furosemide 20 mg tablet 40 mg PO DAILY Qty: 90 3RF amiodarone 200 mg tablet 100 mg PO DAILY Qty: 90 3RF losartan 25 mg tablet 25 mg PO DAILY Qty: 90 3RF Primary Care Provider: Tennille Rosales Referrals: Marie Allison NP, FLATWORK FINISHER-C [Non-Staff -Ordering Privileges] - 3-5 Days Tennille Rosales NP-C [Primary Care Provider] - Disposition Disposition: Home, Self Care
[2023-10-09 08:12] VITALS: PULSE 99; O2SAT 96
--- NOTE | 2023-10-09 08:16 | EKG12_ITS ---
Test Reason : PALPS Blood Pressure : / mmHG Vent. Rate : 101 BPM Atrial Rate : 101 BPM P-R Int : 210 ms QRS Dur : 096 ms QT Int : 386 ms P-R-T Axes : 000 169 107 degrees QTc Int : 500 ms Sinus tachycardia with 1st degree A-V block Incomplete right bundle branch block Right ventricular hypertrophy Possible Inferior infarct , age undetermined Abnormal ECG Confirmed by MOJGAN HINKLE, CORIN ([id number]), editor school photograph IVAN FELIX ([id number]) on 10/11/2023 11:37:31 AM Referred By: GRAYSON Confirmed By:CORIN ULRICH MD
[2023-10-09] MEDS: Aspirin 81 MG TAB.CHEW 324 MG PO (08:31)
[2023-10-09 08:33] VITALS: BP 137/87
--- NOTE | 2023-10-09 08:45 | RAD_ITS ---
STUDY: X-RAY CHEST REASON FOR EXAM: Female, 87 years old. Chest pain TECHNIQUE: PA and lateral views of the chest. COMPARISON: Comparison is made with prior study dated September 10, 2023. FINDINGS: EKG electrodes are seen. Hyperinflation. Stable mild increased markings at the right lung base suggestive of scarring. There is no demonstrated pleural abnormality. Normal size heart. A loop recorder device is seen overlying the cardiac shadow. Normal mediastinum and jerel. Normal visualized pulmonary arteries. There is atherosclerotic calcification of the aortic arch with tortuosity. There are diffuse degenerative changes of the visualized thoracic spine. Normal visualized ribs, clavicles, and shoulders. There is no demonstrated abnormality of the visualized soft tissue structures of the upper abdomen. RAD/Chest PA and Lateral IMPRESSION: Stable examination. No acute abnormality is seen. Electronically Signed: Vito Duncan MD at 8:59 EDT ,
[2023-10-09 08:47] LABS: Absolute Lymphocyte Count 1.16 X10^3/uL (0.83-4.51); Absolute Neutrophil Count 3.2 X10^3/uL (2.0-7.7); Basophil# 0.03 X10^3/uL; Basophil% 0.6 % (0-1); Eosinophil# 0.07 X10^3/uL; Eosinophils% 1.4 % (0-5); Hematocrit 44.3 % (37-47); Hemoglobin 14.3 g/dL (12.0-15.0); Lymphocyte # 1.16 X10^3/ul (0.83-4.51); Lymphocyte % 22.4 % (19-41); Mean Corp Hgb Conc 32.3 g/dL (32-36); Mean Corpuscular Volume 93.1 fL (81-99); Mean Platelet Vol. 11.1 fl (6.2-12.0); Monocyte# 0.67 X10^3/uL; Monocyte% 12.9 % (0-10); NRBC Flagged by Analyzer 0 % (0-5); Neutrophil # 3.23 X10^3/uL (2.7-7.7); Neutrophil % 62.3 % (47-70); Platelet Count 183 K/mm3 (150-450); RBC Distribution Width CV 13.2 % (11.6-14.6); RBC Distribution Width SD 45.4 fl (35.1-43.9); Red Blood Count 4.76 M/mm3 (4.2-5.4); White Blood Count 5.2 K/mm3 (4.4-11.0)
[2023-10-09 09:01] LABS: Anion Gap 3 (5-15); BUN 23 mg/dL (7-18); BUN/Creat Ratio 20.2 RATIO (10-20); Calcium,Total 9.2 mg/dL (8.5-10.1); Chloride 109 mmol/L (98-107); Creatinine, Serum 1.14 mg/dL (0.55-1.02); EST Glomerular Filtration Rate 48 mL/min (>60); Est Glom Filt Rate - Afr Amer 58 mL/min (>60); Estimated Creatinine Clearance 28.15 ml/min; Glucose 95 mg/dL (74-106); Magnesium 2.2 mg/dL (1.6-2.6); Potassium 3.8 mmol/L (3.5-5.1); Sodium Level 141 mmol/L (136-145); Troponin-I HS (w/2H Reflex) 34 pg/mL (3.0-54.0)
[2023-10-09 09:09] LABS: BNP,B-Type NATRIURETIC PEPTIDE 93.2 pg/mL (0-100); D-Dimer Quantitative (DVT/PE) 0.44 FEU/ug/m (0.27-0.49)
[2023-10-09 10:31] VITALS: BP 138/92; PULSE 97; RESP 16; O2SAT 100
[2023-10-09 10:38] LABS: Reflex Troponin-HS? (from REC) Y
[2023-10-09 11:07] VITALS: BP 140/95; PULSE 99; RESP 16; O2SAT 98
[2023-10-09 11:19] LABS: Troponin-I HS 28 pg/mL (3.0-54.0)
[2023-10-09 12:30] LABS: Thyroid Stim Hormone (TSH) 1.14 uIU/mL (0.358-3.74)
== END 2023-10-09 12:24 | disposition home or self-care (01) ==
PROVIDERS: Emergency Provider Emergency Medicine; PCP Nurse Practitioner Family; Visit Provider Emergency Medicine
DX: R00.2 Palpitations (principal); I11.0 Hypertensive heart disease with heart failure; I50.32 Chronic diastolic (congestive) heart failure; I48.0 Paroxysmal atrial fibrillation; E03.9 Hypothyroidism, unspecified; Z79.899 Other long term (current) drug therapy; Z79.01 Long term (current) use of anticoagulants; Z90.710 Acquired absence of both cervix and uterus; Z95.0 Presence of cardiac pacemaker; Z96.641 Presence of right artificial hip joint; Z96.651 Presence of right artificial knee joint
CPT/HCPCS: 71046; 80048; 83735; 83880; 84443; 84484; 85025; 85379; 93005; 99284

== ENCOUNTER → 2023-10-19 | Outpatient (CLI) | payer MEDICARE, OTHER, SELFPAY | END | disposition home or self-care (01) | PROVIDERS: PCP Nurse Practitioner Family; Referring Provider Nurse Practitioner Family; Visit Provider Nurse Practitioner Family | DX: R19.7 Diarrhea, unspecified (principal) | CPT/HCPCS: 83630; 87177; 87209; 87493 ==